=== PATIENT | male | born 1955 ===

== ENCOUNTER → 2019-01-14 | Outpatient (CLI) | payer MEDICAID | LOC: PET-BROA 05:39 ==

== ENCOUNTER 2019-02-19 13:57 | Inpatient (IN) | payer MEDICAID ==
[2019-02-19 14:03] VITALS: BMI 22.4
--- NOTE | 2019-02-19 14:45 | ED PDOC ---
Arrival/HPI - General Chief Complaint: GI Problem Time Seen by Provider: 02/19/19 14:15 Historian: Patient - History of Present Illness Narrative History of Present Illness (Text): 02/19/19 14:42 A 64 year old male presents to the emergency department for evaluation of drainage around manzo catheter that was placed at J tube site by [facility] staff after J tube had fallen out. Patient notes he woke up earlier today and noticed some d rainage at site. Patient notes he was then sent to ER for evaluation. Patient reports pain only upon coughing. Patient denies any fever, chills, chest pain, nausea, vomiting, dizziness, or any other complaints. PMD: Rochelle Matisa Time/Duration: Other (earlier today) Symptom Onset: Gradual Symptom Course: Unchanged Activities at Onset: Light Context: Other (alf) Past Medical History - Provider Review Nursing Documentation Reviewed: Yes - Infectious Disease Hx of Infectious Diseases: None - Cardiac Hx Hypertension: Yes Hx Pacemaker: No - HEENT Hx HEENT Disorder: No Other/Comment: esophageal CA - Hematological/Oncological Hx Blood Disorders: Yes Hx Cancer: Yes (esophageal CA) - Psychiatric Hx Substance Use: No - Surgical History Hx Coronary Stent: No Other/Comment: jejunostomy - Anesthesia Hx Anesthesia: Yes Hx Anesthesia Reactions: No Hx Malignant Hyperthermia: No Family/Social History - Physician Review Nursing Documentation Reviewed: Yes Family/Social History: No Known Family HX Smoking Status: Never Smoked Hx Alcohol Use: Yes Hx Substance Use: No Allergies/Home Meds Allergies/Adverse Reactions: Allergies No Known Allergies Allergy (Verified 02/19/19 14:19) Home Medications: Home Meds Medication Instructions Recorded Confirmed Aspirin [Aspirin Chewable] 1 tab GT DAILY 02/19/19 02/19/19 Docusate [Colace LIQUID] 10 ml GT TID 02/19/19 02/19/19 Lactose-Reduced Food [Ensure Plus] 1 bottle PO TID 02/19/19 02/19/19 Lactulose [Enulose] 20 gm GT DAILY PRN 02/19/19 02/19/19 Mirtazapine [Remeron] 1 tab GT HS 02/19/19 02/19/19 amLODIPine [Norvasc] 1 tab GT DAILY 02/19/19 02/19/19 lamoTRIgine [Lamictal] 75 mg GT BID 02/19/19 02/19/19 traZODone [Desyrel] 75 mg GT HS 02/19/19 02/19/19 Review of Systems - Physician Review All systems were reviewed & negative as marked: Yes - Review of Systems Cardiovascular: absent: Chest Pain Gastrointestinal: Other (manzo catheter drainage). absent: Nausea, Vomiting Neurological: absent: Dizziness Physical Exam Vital Signs Reviewed: Yes Vital Signs Temp Pulse Resp BP Pulse Ox 02/19/19 13:58 98 F 85 18 109/73 97 Temperature: Afebrile Blood Pressure: Normal Pulse: Regular Respiratory Rate: Normal Appearance: Positive for: Well-Appearing Mental Status: Positive for: Alert and Oriented X 3 - Systems Exam Head: Present: Atraumatic, Normocephalic Pupils: Present: PERRL Extroacular Muscles: Present: EOMI Conjunctiva: Present: Normal Mouth: Present: Moist Mucous Membranes Neck: Present: Normal Range of Motion Respiratory/Chest: Present: Clear to Auscultation, Good Air Exchange, Other (port noted to right upper chest wall). No: Respiratory Distress, Accessory Muscle Use Cardiovascular: Present: Regular Rate and Rhythm, Normal S1, S2. No: Murmurs Abdomen: Present: Other (manzo catheter noted to right abdomen with some draigage). No: Tenderness, Distention, Peritoneal Signs Back: Present: Normal Inspection Upper Extremity: Present: Normal Inspection. No: Cyanosis, Edema Lower Extremity: Present: Normal Inspection. No: Edema Neurological: Present: GCS=15, CN II-XII Intact, Speech Normal Skin: Present: Warm, Dry, Normal Color. No: Rashes Psychiatric: Present: Alert, Oriented x 3, Normal Insight, Normal Concentration Medical Decision Making ED Course and Treatment: 02/19/19 14:42 Impression: 64 year old male presenting to the emergency room for evaluation of site. Plan: -- Xray of left abdomen -- Reassess and disposition Prior Visits: Notes and results from previous visits were reviewed. Progress Notes: 02/19/19 16:07 Procedure: Abdomen Xray Dictator: Endy Allen Impression: Contrast is seen in the small bowel of the left upper quadrant confirming intraluminal position of catheter. 02/19/19 16:[address] Espinoza who agrees to admit patient for IV antibiotics and requests a consult to Dr. Zhou for surgery and Dr. Yomi Post for ID. 02/19/19 16:37 Patient eloped from hospital. 02/19/19 16:47 ED staff was able to locate patient and returned him to the ER. Patient is now agreeable to stay. - Scribe Statement The provider has reviewed the documentation as recorded by the Scribe Kathy Tam All medical record entries made by the Scribe were at my direction and personally dictated by me. I have reviewed the chart and agree that the record accurately reflects my personal performance of the history, physical exam, medical decision making, and the department course for this patient. I have also personally directed, reviewed, and agree with the discharge instructions and disposition. Disposition/Present on Arrival - Present on Arrival Any Indicators Present on Arrival: No History of DVT/PE: No History of Uncontrolled Diabetes: No Urinary Catheter: No History of Decub. Ulcer: No History Surgical Site Infection Following: None - Disposition Have Diagnosis and Disposition been Completed?: Yes Diagnosis: Jejunostomy tube fell out, Wound infection, Hypokalemia Disposition: HOSPITALIZED Disposition Time: 16:35 Patient Plan: Admission Patient Problems: Current Active Problems Problem Status Onset Hypokalemia Acute Jejunostomy tube fell out Acute Wound infection Acute Condition: STABLE
[2019-02-19] MEDS ORDERED: Iohexol 240 (50 ml) ONE (15:06)
--- NOTE | 2019-02-19 15:52 | RAD ---
Date of service: 02/19/2019 HISTORY: check placement manzo COMPARISON: None available. TECHNIQUE: 1 view obtained. FINDINGS: BOWEL: Normal. No obstruction. No free air. BONES: Normal. OTHER FINDINGS: None. IMPRESSION: Contrast is seen in the small bowel of the left upper quadrant confirming intraluminal position of catheter
[2019-02-19] MEDS ORDERED: Vancomycin 1gm in NS 250ml 1 GM/250 ML BAG IVPB STA (16:46)
[2019-02-19 17:36] LABS: INR 1.37; PARTIAL THROMBOPLASTIN TIME 35.7 Seconds (26.9-38.3); PROTHROMBIN TIME 15.2 SECONDS (9.4-12.5)
[2019-02-19 17:38] LABS: ALB/GLOB RATIO 0.9 (1.1-1.8); ALBUMIN 3.9 g/dL (3.0-4.8); AST/SGOT 19 U/L (17-59); BLOOD UREA NITROGEN 16 mg/dL (7-21); CALCIUM 9.3 mg/dL (8.4-10.5); GFR NON-AFRICAN AMERICAN > 60
[2019-02-19 17:46] LABS: ALT/SGPT < 6 U/L (7-56)
[2019-02-19 17:58] LABS: BASO # 0.03 {null, K/mm3} (0.0-2.0); BASO % 0.3 % (0.0-3.0); EOS # 0.2 (0.0-0.7); EOS % 2.2 % (1.5-5.0); HEMOGLOBIN 12.7 g/dL (14.0-18.0); MEAN CORPUSCULAR HEMOGLOBIN 30.3 pg (25.0-35.0); MEAN PLATELET VOLUME 11.2 fl (7.0-11.0); MONO # 0.5 (0.1-0.6); MONO % 5.3 % (1.0-6.0); RBC 4.19 {null, 10^6/uL} (3.5-6.1); RED CELL DISTRIBUTION WIDTH 15.4 % (11.5-14.5); WHITE BLOOD COUNT 9.9 {null, 10^3/uL} (4.5-11.0)
[2019-02-19] MEDS ORDERED: Potassium Chloride 40 mEq/30 ml LIQ UD PO STA (18:03)
[2019-02-19] MEDS ORDERED: Potassium Chloride 40 mEq/30 ml LIQ UD GT STA (18:07)
--- NOTE | 2019-02-19 19:40 | CP.PCM.CON ---
History of Present Illness - History of Present Illness History of Present Illness: Infectious Disease Consultation: February 19, 2019 64 yo male with drainage from J-tube site. ER reports show that J-tube came out and a manzo was placed for access today. ([facility] notes are not showing this as I am reviewing them. [facility] notes showing the patient receiving medications at 6:18PM even though the patient has been in [facility] since 1PM from my review of the records.). The patient is making no specific complaints at this time. Afebrile and without leukocytosis. The patient has been in [facility] since 01/07/2019. Discussed with nursing staff at [facility]. The patient was found to have J-tube dislodged this morning. [facility] nursing placed manzo in J-tube place and was able to give feeds. As per [facility] nursing, patient wanted to be sent to hospital to be evaluated. Nursing at [facility] mentioned that there was a little amount of drainage but did not identify it as pus. Multiple previous hospitalizations at [facility]. Recent diagnosis of esophageal cancer in December 2018. PMHx: Esophageal Cancer, Abnormal weight loss, HTN, EtOH Abuse, depression, worsening solid oral intake. PSHx: Jejunostomy, Ventral hernia repair (12/12/2018), appendectomy Allergies: NKDA Social Hx: Daily EtOH use of 1/2 bottle of Vodka daily, tobacco use, no illicit drugs Active Medications Amlodipine Besylate (Norvasc) 10 mg PO DAILY [facility] Aspirin (Aspirin Chewable) 81 mg PO DAILY [facility] Docusate Sodium (Colace Liquid) 100 mg PO TID [facility] Lactulose (Enulose) 20 gm PO DAILY PRN PRN Reason: Constipation Lamotrigine (Lamictal) 75 mg PO BID [facility]; Protocol Mirtazapine (Remeron) 15 mg PO HS [facility] Trazodone HCl (Desyrel) 75 mg PO HS [facility] Family Hx: liver disease in the father. ROS: drainage at J-tube site. Depression NO fevers, chills, nausea, vomiting, diarrhea, headaches, dizziness, chest pain, abdominal pain, melena, hematuria, hematemesis, hematochezia, vision, loss, hearing loss, loss of consciousness. Past Patient History - Infectious Disease Hx of Infectious Diseases: None - Past Social History Smoking Status: Never Smoked - CARDIAC Hx Hypertension: Yes Hx Pacemaker: No - HEENT Hx HEENT Problems: No Other/Comment: esophageal CA - HEMATOLOGICAL/ONCOLOGICAL Hx Blood Disorders: Yes Hx Cancer: Yes (esophageal CA) - PSYCHIATRIC Hx Substance Use: No - SURGICAL HISTORY Hx Coronary Stent: No Other/Comment: jejunostomy - ANESTHESIA Hx Anesthesia: Yes Hx Anesthesia Reactions: No Hx Malignant Hyperthermia: No Meds Allergies/Adverse Reactions: Allergies Allergy/AdvReac Type Severity Reaction Status Date / Time No Known Allergies Allergy Verified 02/19/19 14:19 - Medications Medications: Current Medications Amlodipine Besylate (Norvasc) 10 mg PO DAILY [facility] Aspirin (Aspirin Chewable) 81 mg PO DAILY [facility] Docusate Sodium (Colace Liquid) 100 mg PO TID [facility] Lactulose (Enulose) 20 gm PO DAILY PRN PRN Reason: Constipation Lamotrigine (Lamictal) 75 mg PO BID [facility]; Protocol Mirtazapine (Remeron) 15 mg PO HS [facility] Trazodone HCl (Desyrel) 75 mg PO HS [facility] Physical Exam - Constitutional Appears: Non-toxic, No Acute Distress - Head Exam Head Exam: ATRAUMATIC, NORMOCEPHALIC - Eye Exam Eye Exam: EOMI, PERRL Pupil Exam: NORMAL ACCOMODATION, PERRL - ENT Exam ENT Exam: Mucous Membranes Moist, Normal External Ear Exam, TM's Normal Bilaterally - Neck Exam Neck exam: Positive for: Full Rom, Normal Inspection - Respiratory Exam Respiratory Exam: Clear to Auscultation Bilateral, NORMAL BREATHING PATTERN. absent: Rales, Rhonchi, Wheezes - Cardiovascular Exam Cardiovascular Exam: REGULAR RHYTHM, RRR, +S1, +S2 - GI/Abdominal Exam GI & Abdominal Exam: Normal Bowel Sounds, Soft. absent: Distended, Tenderness Additional comments: J-tube site with no erythema. Questionable tenderness... patient claims tenderness when anyone gets near J-tube insertion site. - Extremities Exam Extremities exam: Positive for: full ROM, normal inspection - Neurological Exam Neurological exam: Alert, CN II-XII Intact, Oriented x3 - Psychiatric Exam Psychiatric exam: Normal Affect, Normal Mood - Skin Skin Exam: Intact, Normal Color Results - Vital Signs Recent Vital Signs: Last Vital Signs Temp 98 F 02/19/19 13:58 Pulse 64 02/19/19 18:28 Resp 18 02/19/19 18:28 BP 112/67 02/19/19 18:28 Pulse Ox 99 02/19/19 18:28 - Labs Result Diagrams: 02/19/19 17:45 02/19/19 17:20 Labs: Laboratory Results - last 24 hr 02/19/19 02/19/19 02/19/19 17:20 17:20 17:45 WBC 9.9 RBC 4.19 Hgb 12.7 L Hct 37.3 L MCV 89.0 MCH 30.3 MCHC 34.0 RDW 15.4 H Plt Count 234 MPV 11.2 H Neut % (Auto) 82.2 H Lymph % (Auto) 10.0 L [place] % (Auto) 5.3 Eos % (Auto) 2.2 Baso % (Auto) 0.3 Lymph # (Auto) 1.0 L [place] # (Auto) 0.5 Eos # (Auto) 0.2 Baso # (Auto) 0.03 Absolute Neuts (auto) 8.17 H PT 15.2 H INR 1.37 APTT 35.7 Sodium 138 Potassium 3.1 L Chloride 102 Carbon Dioxide 25 Anion Gap 15 BUN 16 Creatinine 1.0 Est GFR ( Amer) > 60 Est GFR (Non-Af Amer) > 60 Random Glucose 93 Calcium 9.3 Total Bilirubin 0.7 AST 19 ALT < 6 L Alkaline Phosphatase 124 Total Protein 8.0 Albumin 3.9 Globulin 4.1 Albumin/Globulin Ratio 0.9 L Assessment & Plan - Assessment and Plan (Free Text) Assessment: 64 yo male with recent diagnosis of esophageal cancer found to have a dislodged J-tube on morning of 02/19/2019 at [facility]. The patient without fevers or chills. No other complaints at nursing facility. Patient with questionable tenderness of the J-tube site. Manzo in place of the J-tube a t this time. Imaging studies show no extravasation and contrast is flowing into bowel. Will give Rocephin as empiric antibiotic therapy. However, no fevers or leukocytosis. Surgery recommending for IR to replace J-tube. Supportive care. Thank you for allowing me to participate in the care of the patient, we will follow with you.
--- NOTE | 2019-02-19 20:05 | CP.PCM.CON ---
History of Present Illness - History of Present Illness History of Present Illness: Surgery Consult Note for Dr. Gill Consult: Dislodged J-tube HPI: 64M, past medical history significant for esophageal cancer s/p radiation and alcohol abuse, presents to the emergency department with dislodged J-tube. [facility] states he woke up and noticed the tube had come out. The nursed at the facility placed a manzo and had him transferred to the ED for further evaluation and treatment. Patient endorses mild pain around the J- tube site. Aggravated by palpation. No alleviating factors that he is aware of. Denies f/c, n/v/d, SOB, CP, or urinary symptoms. PMH: See above + DM, HTN PSH: Appendectomy, J-tube insertion, RIJ port-a-cath, Ventral hernia repair FH: Noncontributory SH: Admits to history of alcohol abuse (1/2 pint vodka daily) stopped since cancer diagnosis, denies tobacco or illicit drug use. Patient resident at [facility]. ALL: NKDA Meds: See MAR Review of Systems - Constitutional Constitutional: Weight Loss. absent: Chills, Fever - EENT Eyes: absent: Blurred Vision, Change in Vision Nose/Mouth/Throat: Dry Mouth, Dysphagia. absent: Nasal Congestion, Nasal Discharge, Hoarsness - Cardiovascular Cardiovascular: absent: Chest Pain, Dyspnea - Respiratory Respiratory: absent: Cough, Dyspnea, Hemoptysis, Wheezing - Gastrointestinal Gastrointestinal: Abdominal Pain (at J-tube site ). absent: Nausea, Vomiting - Genitourinary Genitourinary: absent: Difficulty Urinating, Dysuria - Musculoskeletal Musculoskeletal: absent: Back Pain, Neck Pain - Integumentary Integumentary: Changing Lesions - Neurological Neurological: absent: Confusion, Dizziness - Psychiatric Psychiatric: absent: Anxiety, Depression Past Patient History - Infectious Disease Hx of Infectious Diseases: None - Past Social History Smoking Status: Never Smoked - CARDIAC Hx Hypertension: Yes Hx Pacemaker: No - HEENT Hx HEENT Problems: No Other/Comment: esophageal CA - HEMATOLOGICAL/ONCOLOGICAL Hx Blood Disorders: Yes Hx Cancer: Yes (esophageal CA) - PSYCHIATRIC Hx Substance Use: No - SURGICAL HISTORY Hx Coronary Stent: No Other/Comment: jejunostomy - ANESTHESIA Hx Anesthesia: Yes Hx Anesthesia Reactions: No Hx Malignant Hyperthermia: No Meds Allergies/Adverse Reactions: Allergies Allergy/AdvReac Type Severity Reaction Status Date / Time No Known Allergies Allergy Verified 02/19/19 14:19 - Medications Medications: Current Medications Amlodipine Besylate (Norvasc) 10 mg PO DAILY [facility] Aspirin (Aspirin Chewable) 81 mg PO DAILY [facility] Docusate Sodium (Colace Liquid) 100 mg PO TID [facility] Lactulose (Enulose) 20 gm PO DAILY PRN PRN Reason: Constipation Lamotrigine (Lamictal) 75 mg PO BID [facility]; Protocol Mirtazapine (Remeron) 15 mg PO HS [facility] Trazodone HCl (Desyrel) 75 mg PO HS [facility] Physical Exam - Constitutional Appears: Well, Non-toxic, No Acute Distress - Head Exam Head Exam: ATRAUMATIC, NORMAL INSPECTION, NORMOCEPHALIC - Eye Exam Eye Exam: EOMI Pupil Exam: PERRL - ENT Exam ENT Exam: Mucous Membranes Dry - Neck Exam Neck exam: Negative for: Lymphadenopathy - Respiratory Exam Respiratory Exam: NORMAL BREATHING PATTERN. absent: Wheezes, Respiratory Distress - Cardiovascular Exam Cardiovascular Exam: REGULAR RHYTHM, +S1, +S2 - GI/Abdominal Exam GI & Abdominal Exam: Normal Bowel Sounds, Soft. absent: Distended, Guarding, Rebound, Tenderness Additional comments: J-tube site has manzo in place - site appears to have seropurulent drainage - Extremities Exam Extremities exam: Positive for: normal inspection, pedal pulses present - Neurological Exam Neurological exam: Alert, Oriented x3 - Psychiatric Exam Psychiatric exam: Normal Affect, Normal Mood - Skin Skin Exam: Dry, Intact, Warm Results - Vital Signs Recent Vital Signs: Last Vital Signs Temp 98 F 02/19/19 13:58 Pulse 64 02/19/19 18:28 Resp 18 02/19/19 18:28 BP 112/67 02/19/19 18:28 Pulse Ox 99 02/19/19 18:28 - Labs Result Diagrams: 02/19/19 17:45 02/19/19 17:20 Labs: Laboratory Results - last 24 hr 02/19/19 02/19/19 02/19/19 17:20 17:20 17:45 WBC 9.9 RBC 4.19 Hgb 12.7 L Hct 37.3 L MCV 89.0 MCH 30.3 MCHC 34.0 RDW 15.4 H Plt Count 234 MPV 11.2 H Neut % (Auto) 82.2 H Lymph % (Auto) 10.0 L [place] % (Auto) 5.3 Eos % (Auto) 2.2 Baso % (Auto) 0.3 Lymph # (Auto) 1.0 L [place] # (Auto) 0.5 Eos # (Auto) 0.2 Baso # (Auto) 0.03 Absolute Neuts (auto) 8.17 H PT 15.2 H INR 1.37 APTT 35.7 Sodium 138 Potassium 3.1 L Chloride 102 Carbon Dioxide 25 Anion Gap 15 BUN 16 Creatinine 1.0 Est GFR ( Amer) > 60 Est GFR (Non-Af Amer) > 60 Random Glucose 93 Calcium 9.3 Total Bilirubin 0.7 AST 19 ALT < 6 L Alkaline Phosphatase 124 Total Protein 8.0 Albumin 3.9 Globulin 4.1 Albumin/Globulin Ratio 0.9 L Assessment & Plan - Assessment and Plan (Free Text) Assessment: 64M, PMH significant for esophageal cancer, w/ dislodged J-tube Plan: Tube study shows contrast within small bowel - no extravasation Keep manzo in place securely to maintain tract Can use manzo for tube feeds Recommend IR consult to replace the feeding tube at this time No acute surgical intervention indicated at this time D/w Dr. Jairo Omalley PGY1
[2019-02-20] MEDS: cefTRIAXone 1 gm 1 GM/100 ML BAG IVPB SCH (10:04)
[2019-02-20] MEDS: Sucralfate 1 gm/10 ml Oral Susp UD PO SCH (16:38)
--- NOTE | 2019-02-20 17:53 | CP.PCM.PN ---
Subjective - Date & Time of Evaluation Date of Evaluation: 02/20/19 Time of Evaluation: 16:30 - Subjective Subjective: Infectious Disease Follow Up: February 20, 2019 64 yo male with drainage from J-tube site. ER reports show that J-tube came out and a manzo was placed for access today. ([facility] notes are not showing this as I am reviewing them. [facility] notes showing the patient receiving medications at 6:18PM even though the patient has been in [facility] since 1PM from my review of the records.). The patient is making no specific complaints at this time. Afebrile and without leukocytosis. The patient has been in [facility] since 01/07/2019. Discussed with nursing staff at [facility]. The patient was found to have J-tube dislodged this morning. [facility] nursing placed manzo in J-tube place and was able to give feeds. As per [facility] nursing, patient wanted to be sent to hospital to be evaluated. Nursing at [facility] mentioned that there was a little amount of drainage but did not identify it as pus. Multiple previous hospitalizations at [facility]. Recent diagnosis of esophageal cancer in December 2018. No new complaints. Objective - Vital Signs/Intake and Output Vital Signs (last 24 hours): Temp Pulse Resp BP Pulse Ox 97.9 F 67 18 111/72 99 02/20/19 14:56 02/20/19 14:56 02/20/19 14:56 02/20/19 14:56 02/20/19 14:56 - Medications Medications: Current Medications Amlodipine Besylate (Norvasc) 10 mg PO DAILY [facility] Last Admin: 02/20/19 10:05 Dose: 10 mg Aspirin (Aspirin Chewable) 81 mg PO DAILY [facility] Last Admin: 02/20/19 10:05 Dose: 81 mg Docusate Sodium (Colace Liquid) 100 mg PO TID [facility] Last Admin: 02/20/19 13:53 Dose: 100 mg Ceftriaxone Sodium (Rocephin 1 Gram Ivpb) 1 gm in 100 mls @ 100 mls/hr IVPB DAILY [facility]; Protocol Last Admin: 02/20/19 10:04 Dose: 100 mls/hr Lactulose (Enulose) 20 gm PO DAILY PRN PRN Reason: Constipation Lamotrigine (Lamictal) 75 mg PO BID [facility]; Protocol Last Admin: 02/20/19 10:05 Dose: 75 mg Mirtazapine (Remeron) 15 mg PO HS [facility] Last Admin: 02/19/19 22:50 Dose: 15 mg Sucralfate (Carafate Oral Susp) 1 gm PO 0600,1600 [facility] Last Admin: 02/20/19 16:38 Dose: 1 gm Trazodone HCl (Desyrel) 75 mg PO HS [facility] Last Admin: 02/19/19 22:50 Dose: 75 mg - Labs Labs: 02/19/19 17:45 02/19/19 17:20 PT 15.2 SECONDS (9.4-12.5) H 02/19/19 17:20 INR 1.37 02/19/19 17:20 APTT 35.7 Seconds (26.9-38.3) 02/19/19 17:20 - Constitutional Appears: Non-toxic, No Acute Distress, Chronically Ill - Head Exam Head Exam: ATRAUMATIC, NORMOCEPHALIC - Eye Exam Eye Exam: EOMI, PERRL Pupil Exam: NORMAL ACCOMODATION, PERRL - ENT Exam ENT Exam: Mucous Membranes Moist, Normal External Ear Exam, TM's Normal Bilaterally - Neck Exam Neck Exam: Full ROM, Normal Inspection - Respiratory Exam Respiratory Exam: Clear to Ausculation Bilateral, NORMAL BREATHING PATTERN. absent: Rales, Rhonchi, Wheezes - Cardiovascular Exam Cardiovascular Exam: REGULAR RHYTHM, RRR, +S1, +S2 - GI/Abdominal Exam GI & Abdominal Exam: Soft, Normal Bowel Sounds. absent: Distended, Tenderness Additional comments: J-tube site with no erythema. Questionable tenderness... patient claims tenderness when anyone gets near J-tube insertion site. Noted that a manzo is in place of the J-tube. - Extremities Exam Extremities Exam: Full ROM, Normal Inspection - Neurological Exam Neurological Exam: Alert, Awake, CN II-XII Intact, Oriented x3 - Psychiatric Exam Psychiatric exam: Normal Affect, Normal Mood - Skin Skin Exam: Intact, Normal Color Assessment and Plan - Assessment and Plan (Free Text) Assessment: 64 yo male with recent diagnosis of esophageal cancer found to have a dislodged J-tube on morning of 02/19/2019 at [facility]. The patient without fevers or chills. No other complaints at nursing facility. Patient with questionable tenderness of the J-tube site. Manzo in place of the J-tube at this time. Imaging studies show no extravasation and contrast is flowing in to bowel. Will give Rocephin as empiric antibiotic therapy. However, no fevers or leukocytosis. Surgery recommending for IR to replace J-tube. No new issues. Consider GI evaluation regarding J-tube as well. Supportive care. Thank you for allowing me to participate in the care of the patient, we will follow with you.
--- NOTE | 2019-02-21 03:34 | HP ---
DATE OF EXAM: 02/19/2019 The patient was seen and examined at the bedside on 02/19/2019. CHIEF COMPLAINT: Abdominal pain. HISTORY OF PRESENT ILLNESS: Mr. Michael Chaves is a 64-year-old male with past medical history of oesophageal squamous cell carcinoma, has Port-a-cath J-tube placement done by Dr. Gill in [facility]. He is getting radiation therapy from [facility] under care of oncologist, Dr. Garcia. He was getting subacute rehab in [facility]. He pulled his J-tube, then we sent nursing staff to put Doss catheter in that and then we sent the patient to their emergency room, on examination came to know that at the site of J-tube, he has drainage noticed by ER. The patient had noticed that he was having a little bit pain in the abdomen. The patient is a very poor historian, reporting coughing. No nausea, vomiting, diarrhea. No hematuria. No hematochezia. No headache. No dizziness. PAST MEDICAL HISTORY: Squamous cell carcinoma of the esophagus, hypertension, COPD, jejunostomy tube, Port-A-Cath, history of ethanol abuse, smoking and history of drugs. FAMILY HISTORY: Father and mother, noncontributory. HABITS: History of smoking, but now quit. History of alcohol abuse, now quit. History of drug abuse, now quit. The patient is a homeless. ALLERGIES: THE PATIENT IS NOT ALLERGIC WITH ANY MEDICATIONS. HOME MEDICATIONS: Aspirin, Colace, Enulose, Norvasc, Lamictal, and trazodone. REVIEW OF SYSTEMS: The patient was seen and examined at the bedside, looking comfortable. No fever. No chills. No hematuria. No hematochezia. No headache. No dizziness. No chest pain. No palpitation. Having abdominal pain and discharged from the J-tube placement. PHYSICAL EXAMINATION VITAL SIGNS: Temperature 98, pulse 65, respiratory rate 18, blood pressure 109/73, pulse oximetry 97%. HEENT: Head is normocephalic and atraumatic. Eyes; PERRLA. Extraocular muscles intact. Conjunctiva clear. Nose patent. Mucous membranes moist. NECK: Supple. No carotid bruits. No JVD. No thyromegaly. CHEST: Bilaterally symmetrical. HEART: S1 and S2 positive. LUNGS: Clear to auscultation. ABDOMEN: Doss catheter noted to the right abdomen with some drainage. No distention. No peritoneal signs. EXTREMITIES: No edema. No cyanosis. NEUROLOGIC: The patient is awake and alert. Follow simple commands. LABORATORY DATA: White blood cell count 9.9, hemoglobin 12.7, hematocrit 37.3, platelets 234. Sodium 138, potassium 3.1, BUN 15, creatinine 1.0 and glucose 93. ASSESSMENT AND PLAN: Mr. Anastacio Rodriguez is a 64-year-old male with anemia, hypokalemia, history of esophageal cancer, has jejunostomy tube placement. He is getting subacute rehabilitation in [facility]. Over the jejunostomy tube was displaced, was replaced with Doss catheter. The patient is a very poor historian. The patient do not know how tube was dislodged, history of chronic obstructive pulmonary disease, history of aspiration, history of drug abuse, alcohol abuse, and ethanol abuse long time ago, cellulitis of the abdominal wall. Imaging shows no extravasation contrast flowing into the bowel, got Rocephin, empiric treatment. Consult put with surgical team and Dr. Gill. Discussion done with nursing staff. Repeat laboratories. We will follow up. Appreciated Dr. Rizo's input. Kristina Espinoza MD MTDD
--- NOTE | 2019-02-21 03:36 | PN ---
DATE: 02/20/2019 SUBJECTIVE: The patient is seen and examined at the bedside on 02/20/2019, looking comfortable. Abdominal pain is better. When he is eating, he is coughing. He is not allowed to eat. He should get feeding with his J-tube. Placed Doss catheter. No fever, no chills. No hematuria or hematochezia. No headache, no dizziness. No chest pain, no palpitations. PHYSICAL EXAMINATION: VITAL SIGNS: Temperature 97.9, pulse 57, blood pressure 111/72, respiratory rate 18. HEENT: Head: Normocephalic, atraumatic. Eyes: PERRLA. Extraocular muscles intact. Conjunctivae clear. Nose patent. Mucous membrane moist. NECK: Supple. No carotid bruits. No JVD. No thyromegaly. CHEST: Bilaterally symmetrical. HEART: S1 and S2 positive. LUNGS: Clear to auscultation. ABDOMEN: Soft, distended, J-tube placement. That area is a little bit red with pus discharge and has Doss catheter in that. EXTREMITIES: No edema. No cyanosis. NEUROLOGIC: The patient is awake and alert. Moving all four extremities. No focal deficits. MEDICATIONS: Aspirin, Carafate, Colace, trazodone, lactulose, Lamictal, Norvasc, Remeron, Rocephin. LABORATORY DATA: BUN 16, creatinine 1, glucose 93. White blood cell 9.9, hemoglobin 12.7, hematocrit 37.3, platelets 234. ASSESSMENT AND PLAN: Mr. Anastacio Rodriguez is a 64-year-old male with anemia, hypokalemia, chronic obstructive pulmonary disease, history of heavy smoking, esophageal cancer, has Port-A-Cath and has jejunostomy tube placement, history of diabetes mellitus and hypertension, history of ventral hernia repair, history of alcohol abuse of half pint vodka daily, stopped since cancer diagnosed, history of heavy smoking, now brought to [facility] because of dislodged jejunostomy tube and the area looks like infected. Cultures are done. Intravenous antibiotics given. Surgical consult called. Now, as per Surgery, I called Interventional Radiology consult. Gastrointestinal and deep vein thrombosis prophylaxis. Repeat laboratories. We will follow. Kristina Espinoza MD MTDD
[2019-02-21] MEDS: Sucralfate 1 gm/10 ml Oral Susp UD PO SCH ×2 (05:54→19:02)
[2019-02-21] MEDS: cefTRIAXone 1 gm 1 GM/100 ML BAG IVPB SCH (09:11)
--- NOTE | 2019-02-21 17:10 | CP.PCM.PN ---
Subjective - Date & Time of Evaluation Date of Evaluation: 02/21/19 Time of Evaluation: 16:00 - Subjective Subjective: Infectious Disease Follow Up: February 21, 2019 64 yo male with drainage from J-tube site. ER reports show that J-tube came out and a manzo was placed for access today. ([facility] notes are not showing this as I am reviewing them. [facility] notes showing the patient receiving medications at 6:18PM even though the patient has been in [facility] since 1PM from my review of the records.). The patient is making no specific complaints at this time. Afebrile and without leukocytosis. The patient has been in [facility] since 01/07/2019. Discussed with nursing staff at [facility]. The patient was found to have J-tube dislodged this morning. [facility] nursing placed manzo in J-tube place and was able to give feeds. As per [facility] nursing, patient wanted to be sent to hospital to be evaluated. Nursing at [facility] mentioned that there was a little amount of drainage but did not identify it as pus. Multiple previous hospitalizations at [facility]. Recent diagnosis of esophageal cancer in December 2018. No new complaints. Awaiting IR evaluation for replacement of J-tube. Objective - Vital Signs/Intake and Output Vital Signs (last 24 hours): Temp Pulse Resp BP Pulse Ox 98.5 F 70 18 122/74 98 02/21/19 14:00 02/21/19 14:00 02/21/19 14:00 02/21/19 14:00 02/21/19 14:00 - Medications Medications: Current Medications Amlodipine Besylate (Norvasc) [address] [facility] Last Admin: 02/21/19 09:12 Dose: Not Given Aspirin (Aspirin Chewable) [address] [facility] Last Admin: 02/21/19 09:10 Dose: 81 mg Docusate Sodium (Colace Liquid) [address] [facility] Last Admin: 02/21/19 14:44 Dose: Not Given Ceftriaxone Sodium (Rocephin 1 Gram Ivpb) 1 gm in 100 mls @ 100 mls/hr IVPB DAILY [facility]; Protocol Last Admin: 02/21/19 09:11 Dose: 100 mls/hr Lactulose (Enulose) 20 gm PO DAILY PRN PRN Reason: Constipation Lamotrigine (Lamictal) [address] [facility]; Protocol Last Admin: 02/21/19 09:16 Dose: Not Given Mirtazapine (Remeron) [address] [facility] Last Admin: 02/20/19 23:42 Dose: Not Given Sucralfate (Carafate Oral Susp) 1 gm PO 0600,1600 [facility] Last Admin: 02/21/19 05:54 Dose: Not Given Trazodone HCl (Desyrel) 75 mg PO [facility] Last Admin: 02/20/19 23:42 Dose: Not Given - Labs Labs: 02/19/19 17:45 02/19/19 17:20 PT 15.2 SECONDS (9.4-12.5) H 02/19/19 17:20 INR 1.37 02/19/19 17:20 APTT 35.7 Seconds (26.9-38.3) 02/19/19 17:20 - Constitutional Appears: Non-toxic, No Acute Distress, Chronically Ill - Head Exam Head Exam: ATRAUMATIC, NORMOCEPHALIC - Eye Exam Eye Exam: EOMI, PERRL Pupil Exam: NORMAL ACCOMODATION, PERRL - ENT Exam ENT Exam: Mucous Membranes Moist, Normal External Ear Exam, TM's Normal B ilaterally - Neck Exam Neck Exam: Full ROM, Normal Inspection - Respiratory Exam Respiratory Exam: Clear to Ausculation Bilateral, NORMAL BREATHING PATTERN. absent: Rales, Rhonchi, Wheezes - Cardiovascular Exam Cardiovascular Exam: REGULAR RHYTHM, RRR, +S1, +S2 - GI/Abdominal Exam GI & Abdominal Exam: Soft, Normal Bowel Sounds. absent: Distended, Tenderness Additional comments: J-tube site with no erythema. Mild tenderness of the J-tube site. - Extremities Exam Extremities Exam: Full ROM, Normal Inspection - Neurological Exam Neurological Exam: Alert, Awake, CN II-XII Intact, Oriented x3 - Psychiatric Exam Psychiatric exam: Normal Affect, Normal Mood - Skin Skin Exam: Intact, Normal Color Assessment and Plan - Assessment and Plan (Free Text) Assessment: 64 yo male with recent diagnosis of esophageal cancer found to have a dislodged J-tube on morning of 02/19/2019 at [facility]. The patient without fevers or chills. No other complaints at nursing facility. Patient with questionable tenderness of the J-tube site. Manzo in place of the J-tube at this time. Imaging studies show no extravasation and contrast is flowing into bowel. Will give Rocephin as empiric antibiotic therapy. However, no fevers or leukocytosis. Surgery recommending for IR to replace J-tube. No new issues. Consider GI evaluation regarding J-tube as well. Will continue on Gavino ephin empirically for antibiotic coverage. Supportive care. Thank you for allowing me to participate in the care of the patient, we will follow with you.
[2019-02-22] MEDS: Sucralfate 1 gm/10 ml Oral Susp UD PO SCH ×2 (05:36→18:24)
[2019-02-22] MEDS: cefTRIAXone 1 gm 1 GM/100 ML BAG IVPB SCH (12:42)
--- NOTE | 2019-02-22 12:49 | PN ---
DATE: 02/21/2019 SUBJECTIVE: The patient was seen and examined at the bedside on 02/21/2019. This progress note is for 02/21/2019, still having bunion pain and dysphagia. No fever. No chills. No hematuria or hematochezia. No headache or dizziness. No chest pain. No palpitation. No coughing. PHYSICAL EXAMINATION: VITAL SIGNS: Temperature 98.5, pulse 70, respiratory rate 18, blood pressure 120/74, pulse oximetry 98. HEENT: Normocephalic, atraumatic. Eyes: PERRLA. Extraocular muscles intact. Conjunctivae clear. Nose patent. NECK: Supple. No carotid bruits. No JVD or thyromegaly. CHEST: Bilaterally symmetrical. HEART: S1 and S2 positive. LUNGS: Clear to auscultation. ABDOMEN: Soft. Bowel sounds present. No organomegaly. EXTREMITIES: No edema. No cyanosis. NEUROLOGIC: The patient is awake and alert. Moving all four extremities. No focal deficits. MEDICATIONS: Amlodipine, aspirin, Colace, Rocephin, lactulose, Lamictal, Remeron, Carafate, vitamin D. LABORATORY DATA: The patient refused the labs. I reviewed all labs. ASSESSMENT AND PLAN: Mr. Anastacio Rodriguez is a 64 years old male with hypertension, constipation, infection at the site of J-tube placement, depression, anemia, hypokalemia, has esophageal squamous cell carcinoma, has dislodged the jejunostomy tube placed with Doss catheter, now waiting from Intervention Radiology to make sure I could consult with Gastroenterology and Surgery also, out of bed Physical Therapy. Gastrointestinal and deep vein thrombosis prophylaxis, especially, the patient is on aspiration precautions, nurse is putting something in the mouth as he was getting coughing. Repeat labs. We will follow up. Kristina Espinoza MD MTDD
--- NOTE | 2019-02-22 16:47 | CP.PCM.CON ---
<MariGadiel - Last Filed: 02/22/19 16:44> History of Present Illness - History of Present Illness History of Present Illness: PGY4 GI fellow consult note Patient is a 64-year-old male with a past medical history of pretension, COPD, former tobacco and alcohol abuser, esophageal squamous carcinoma currently undergoing radiation therapy with Dr. Garcia who was sent in from skilled nursing due to dislodged J-tube and concerns for possible infection. patient states that he is not sure how his G-tube became dislodged. However, at the skilled nursing a Doss catheter was placed in the lumen to maintain the tract. There is also some concern of abnormal discharge as well as possible underlying cellulitis. A contrasted radiograph was done confirming placement within the lumen of the Doss catheter. Patient states he is currently tolerating his liquid diet. He denied any fevers, chills, nausea, vomiting, melena nor hematochezia. 12 point review of systems negative other than stated above Medical history: See above Surgical history Port-A-Cath, J-tube placed by surgery Medications: Reviewed Family history: Denied GI or colorectal cancer Social history: homeless, history of tobacco and alcohol abuse but currently sober Allergies: No known drug allergies Past Patient History - Infectious Disease Hx of Infectious Diseases: None - Past Social History Smoking Status: Never Smoked - CARDIAC Hx Hypertension: Yes Hx Pacemaker: No - HEENT Hx HEENT Problems: No Other/Comment: esophageal CA - HEMATOLOGICAL/ONCOLOGICAL Hx Blood Disorders: Yes Hx Cancer: Yes (esophageal CA) - MUSCULOSKELETAL/RHEUMATOLOGICAL Hx Falls: No - GASTROINTESTINAL Other/Comment: Jejuostomy; Diaphragmatic hernia - GENITOURINARY/GYNECOLOGICAL Hx Prostate Problems: Yes - PSYCHIATRIC Hx Substance Use: No - SURGICAL HISTORY Hx Coronary Stent: No Other/Comment: jejunostomy - ANESTHESIA Hx Anesthesia: Yes Hx Anesthesia Reactions: No Hx Malignant Hyperthermia: No Meds Allergies/Adverse Reactions: Allergies Allergy/AdvReac Type Severity Reaction Status Date / Time No Known Allergies Allergy Verified 02/19/19 14:19 - Medications Medications: Current Medications Amlodipine Besylate (Norvasc) 10 mg PO DAILY [facility] Last Admin: 02/22/19 12:36 Dose: Not Given Aspirin (Aspirin Chewable) 81 mg PO DAILY [facility] Last Admin: 02/22/19 12:18 Dose: 81 mg Docusate Sodium (Colace Liquid) 100 mg PO TID [facility] Last Admin: 02/22/19 14:19 Dose: Not Given Ceftriaxone Sodium (Rocephin 1 Gram Ivpb) 1 gm in 100 mls @ 100 mls/hr IVPB DAILY [facility]; Protocol Last Admin: 02/22/19 12:42 Dose: 100 mls/hr Lactulose (Enulose) 20 gm PO DAILY PRN PRN Reason: Constipation Last Admin: 02/21/19 19:02 Dose: 20 gm Lamotrigine (Lamictal) 75 mg PO BID [facility]; Protocol Last Admin: 02/22/19 14:19 Dose: Not Given Mirtazapine (Remeron) 15 mg PO HS [facility] Last Admin: 02/21/19 22:09 Dose: Not Given Sucralfate (Carafate Oral Susp) 1 gm PO 0600,1600 [facility] Last Admin: 02/22/19 05:36 Dose: Not Given Trazodone HCl (Desyrel) 75 mg PO HS [facility] Last Admin: 02/21/19 22:09 Dose: Not Given Physical Exam - Constitutional Appears: No Acute Distress, Chronically Ill - Head Exam Head Exam: ATRAUMATIC, NORMAL INSPECTION - Eye Exam Eye Exam: EOMI. absent: Scleral icterus - ENT Exam ENT Exam: Mucous Membranes Moist. absent: Mucous Membranes Dry - Respiratory Exam Respiratory Exam: Clear to Auscultation Bilateral, NORMAL BREATHING PATTERN. absent: Accessory Muscle Use - Cardiovascular Exam Cardiovascular Exam: REGULAR RHYTHM, RRR - GI/Abdominal Exam GI & Abdominal Exam: Guarding (voluntary guarding when palpating around J-tube site), Normal Bowel Sounds, Soft, Tenderness. absent: Bruit, Diminished Bowel Sounds, Distended, Firm, Hernia, Organomegaly, Rebound, Rigid Additional comments: Doss catheter in place of previous J-tube site with minimal amount of grayish discharge without significant overlying erythema - Extremities Exam Extremities exam: Positive for: normal inspection. Negative for: pedal edema - Neurological Exam Neurological exam: Alert, Oriented x3 - Psychiatric Exam Psychiatric exam: Normal Affect, Normal Mood - Skin Skin Exam: Normal Color, Warm Results - Vital Signs Recent Vital Signs: Last Vital Signs Temp 98.4 F 02/22/19 14:00 Pulse 68 02/22/19 14:00 Resp 18 02/22/19 14:00 BP 118/76 02/22/19 14:00 Pulse Ox 98 02/22/19 14:00 - Labs Result Diagrams: 02/19/19 17:45 02/19/19 17:20 Assessment & Plan - Assessment and Plan (Free Text) Assessment: 64-year-old gentleman with a history of esophageal carcinoma currently undergoing radiation therapy status post G-tube placement who was admitted for displaced G-tube as well as concerns for associated cellulitic infection around the J-tube. J-tube site currently being maintained with a Doss catheter in the tract and placement confirmed with contrast radiograph. Plan: recommend withdrawal of Doss catheter by several centimeters as a Doss catheter tube is significantly longer than a J tube agree with IR replacement of J-tube Antibiotics per primary/ID Patient seen and examined with Dr. Casas. Please see attestation for further recommendations/changes <Raymond Casas V - Last Filed: 02/22/19 23:30> Meds - Medications Medications: Current Medications Amlodipine Besylate (Norvasc) 10 mg PO DAILY [facility] Last Admin: 02/22/19 12:36 Dose: Not Given Aspirin (Aspirin Chewable) 81 mg PO DAILY [facility] Last Admin: 02/22/19 12:18 Dose: 81 mg Docusate Sodium (Colace Liquid) 100 mg PO TID [facility] Last Admin: 02/22/19 18:23 Dose: 100 mg Ceftriaxone Sodium (Rocephin 1 Gram Ivpb) 1 gm in 100 mls @ 100 mls/hr IVPB DAILY [facility]; Protocol Last Admin: 02/22/19 12:42 Dose: 100 mls/hr Lactulose (Enulose) 20 gm PO DAILY PRN PRN Reason: Constipation Last Admin: 02/21/19 19:02 Dose: 20 gm Lamotrigine (Lamictal) 75 mg PO BID [facility]; Protocol Last Admin: 02/22/19 18:24 Dose: 75 mg Mirtazapine (Remeron) 15 mg PO HS [facility] Last Admin: 02/22/19 22:04 Dose: Not Given Sucralfate (Carafate Oral Susp) 1 gm PO 0600,1600 [facility] Last Admin: 02/22/19 18:24 Dose: 1 gm Trazodone HCl (Desyrel) 75 mg PO HS [facility] Last Admin: 02/22/19 22:03 Dose: Not Given Results - Vital Signs Recent Vital Signs: Last Vital Signs Temp 98.1 F 02/22/19 22:33 Pulse 62 02/22/19 22:33 Resp 18 02/22/19 22:33 BP 120/80 02/22/19 22:33 Pulse Ox 99 02/22/19 22:33 - Labs Result Diagrams: 02/19/19 17:45 02/19/19 17:20 Attending/Attestation - Attestation I have personally seen and examined this patient.: Yes I have fully participated in the care of the patient.: Yes I have reviewed all pertinent clinical information: Yes Notes (Text): This patient was seen along with the GI fellow. The J-tube appears to be far from in. Surgical consult /follow-up review noticed. Requested IR guide dreplacement of the J-tube 02/22/19 23:23
--- NOTE | 2019-02-22 17:55 | CP.PCM.PN ---
Subjective - Date & Time of Evaluation Date of Evaluation: 02/22/19 Time of Evaluation: 15:30 - Subjective Subjective: Infectious Disease Follow Up: February 22, 2019 64 yo male with drainage from J-tube site. ER reports show that J-tube came out and a manzo was placed for access today. ([facility] notes are not showing this as I am reviewing them. [facility] notes showing the patient receiving medications at 6:18PM even though the patient has been in [facility] since 1PM from my review of the records.). The patient is making no specific complaints at this time. Afebrile and without leukocytosis. The patient has been in [facility] since 01/07/2019. Discussed with nursing staff at [facility]. The patient was found to have J-tube dislodged this morning. [facility] nursing placed manzo in J-tube place and was able to give feeds. As per [facility] nursing, patient wanted to be sent to hospital to be evaluated. Nursing at [facility] mentioned that there was a little amount of drainage but did not identify it as pus. Multiple previous hospitalizations at [facility] [place]. Recent diagnosis of esophageal cancer in December 2018. No new complaints. Awaiting IR evaluation for replacement of J-tube. Noted GI evaluation. Objective - Vital Signs/Intake and Output Vital Signs (last 24 hours): Temp Pulse Resp BP Pulse Ox 98.4 F 68 18 118/76 98 02/22/19 14:00 02/22/19 14:00 02/22/19 14:00 02/22/19 14:00 02/22/19 14:00 Intake and Output: 02/22/19 02/22/19 06:59 18:59 Intake Total 0 Balance 0 - Medications Medications: Current Medications Amlodipine Besylate (Norvasc) 10 mg PO DAILY [facility] Last Admin: 02/22/19 12:36 Dose: Not Given Aspirin (Aspirin Chewable) 81 mg PO DAILY [facility] Last Admin: 02/22/19 12:18 Dose: 81 mg Docusate Sodium (Colace Liquid) 100 mg PO TID [facility] Last Admin: 02/22/19 14:19 Dose: Not Given Ceftriaxone Sodium (Rocephin 1 Gram Ivpb) 1 gm in 100 mls @ 100 mls/hr IVPB DAILY [facility]; Protocol Last Admin: 02/22/19 12:42 Dose: 100 mls/hr Lactulose (Enulose) 20 gm PO DAILY PRN PRN Reason: Constipation Last Admin: 02/21/19 19:02 Dose: 20 gm Lamotrigine (Lamictal) 75 mg PO BID [facility]; Protocol Last Admin: 02/22/19 14:19 Dose: Not Given Mirtazapine (Remeron) 15 mg PO [facility] Last Admin: 02/21/19 22:09 Dose: Not Given Sucralfate (Carafate Oral Susp) 1 gm PO 0600,1600 [facility] Last Admin: 02/22/19 05:36 Dose: Not Given Trazodone HCl (Desyrel) 75 mg PO [facility] Last Admin: 02/21/19 22:09 Dose: Not Given - Labs Labs: 02/19/19 17:45 02/19/19 17:20 PT 15.2 SECONDS (9.4-12.5) H 02/19/19 17:20 INR 1.37 02/19/19 17:20 APTT 35.7 Seconds (26.9-38.3) 02/19/19 17:20 - Constitutional Appears: Non-toxic, No Acute Distress, Chronically Ill - Head Exam Head Exam: ATRAUMATIC, NORMOCEPHALIC - Eye Exam Eye Exam: EOMI, PERRL Pupil Exam: NORMAL ACCOMODATION, PERRL - ENT Exam ENT Exam: Mucous Membranes Moist, Normal External Ear Exam, TM's Normal Bilaterally - Neck Exam Neck Exam: Full ROM, Normal Inspection - Respiratory Exam Respiratory Exam: Clear to Ausculation Bilateral, NORMAL BREATHING PATTERN. absent: Rales, Rhonchi, Wheezes - Cardiovascular Exam Cardiovascular Exam: REGULAR RHYTHM, RRR, +S1, +S2 - GI/Abdominal Exam GI & Abdominal Exam: Soft, Normal Bowel Sounds. absent: Distended, Tenderness Additional comments: J-tube site with no erythema. Mild tenderness of the J-tube site. - Extremities Exam Extremities Exam: Full ROM, Normal Inspection - Neurological Exam Neurological Exam: Alert, Awake, CN II-XII Intact, Oriented x3 - Psychiatric Exam Psychiatric exam: Normal Affect, Normal Mood - Skin Skin Exam: Intact, Normal Color Assessment and Plan - Assessment and Plan (Free Text) Assessment: 64 yo male with recent diagnosis of esophageal cancer found to have a dislodged J-tube on morning of 02/19/2019 at [facility]. The patient without fevers or chills. No other complaints at nursing facility. Patient with questionable tenderness of the J-tube site. Manzo in place of the J-tube at this time. Imaging studies show no extravasation and contrast is flowing into bowel. Will give Rocephin as empiric antibiotic therapy. However, no fevers or leukocytosis. Surgery recommending for IR to replace J-tube. No new issues. Consider GI evaluation regarding J-tube as well. Will continue on Rocephin empirically for antibiotic coverage. Klebsiella pneumonia in wound cultures sensitive to Rocephin. Supportive care. Thank you for allowing me to participate in the care of the patient, we will follow with you.
--- NOTE | 2019-02-22 19:52 | PN ---
DATE: 02/22/2019 This case was discussed with Dr. Espinoza. She is in agreement with the treatment plan. SUBJECTIVE: This is a 64-year-old male, came in to hospital from [facility] with J-tube site drainage. The site was not patent. He was also last admitted in to [facility] maybe a week ago with nausea/vomiting He was discharged back to skilled nursing.The patient has past medical history of esophageal cancer, alcohol, seizure, anxiety, lumbago, BPH, hypertension. Seen patient at bedside today, He was looking comfortable. He was sitting in bed. I explained to the patient the J-tube dressing site needs to be cleansed by nurses before and after surgical J tube replacement. He also had other concerns about when he is going to surgery to get a J-tube reinserted; that also was discussed with the patient today. He denies chest pain, shortness of breath, dysuria, hematuria, hemochezia, or pain. THE PATIENT HAS NO KNOWN ALLERGIES. PHYSICAL EXAMINATION: GENERAL: The patient appears he is without acute distress; chronically ill. VITAL SIGNS: Temperature 98.3, pulse rate 59, blood pressure 118/73, respiratory rate 16, and saturating at 97% on room air. HEENT: Normocephalic. PERRLA. Mucous membranes moist. RESPIRATORY: Clear to auscultation. No wheezing. No rhonchi. CARDIOVASCULAR: S1 and S2. No murmur. No gallop. ABDOMEN: Soft. The patient has some tenderness at the site of the J-tube, guarded when we go to assess that area; has some drainage reported from the nurse, yellow. SKIN: Intact. Otherwise, no patch. EXTREMITIES: No lower extremity edema or cyanosis. NEUROLOGIC: The patient is alert and oriented x2 to 3 with cranial nerves II through XII intact. Some cognitive deficit. MEDICATIONS: Norvasc 10 mg daily, aspirin 81 mg. The patient is on Rocephin 1 g IV piggyback every 8 hours, Colace Liquid, lactulose 20 mg daily, Lamictal 75 mg, Remeron 15 mg p.o. at bedtime, sucralfate, and trazodone 75 mg. LABORATORY DATA: White blood cells 9.9, hemoglobin 12.7, hematocrit 37.3, and platelet count 234. Sodium 138, potassium 3.1, BUN 16, creatinine 1, and GFR was 60. ASSESSMENT AND PLAN: This 64-year-old male came here from [facility]. He has a history of alcohol abuse, esophageal cancer, dysphagia, chronic anemia, hypertension, benign prostatic hyperplasia, diabetes mellitus type 2, J-tube enteral feeding.J-tube site with drainage. and erythema. The patient is receiving Rocephin 1 g for that. He is receiving Norvasc, Lamictal, Remeron, sucralfate, lactulose, and trazodone. The patient is going to go on in. Gastroenterology is on his case. Infectious Disease is on the case. J tube will be replaced, We will continue IV antibiotics, and plan for discharge once cleared by GI and ID. 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
[2019-02-23] MEDS: Sucralfate 1 gm/10 ml Oral Susp UD PO SCH ×2 (06:28→17:49)
[2019-02-23] MEDS: cefTRIAXone 1 gm 1 GM/100 ML BAG IVPB SCH (11:20)
--- NOTE | 2019-02-23 16:24 | CP.PCM.PN ---
Subjective - Date & Time of Evaluation Date of Evaluation: 02/23/19 Time of Evaluation: 16:00 - Subjective Subjective: Infectious Disease Follow Up: February 23, 2019 64 yo male with drainage from J-tube site. ER reports show that J-tube came out and a manzo was placed for access today. ([facility] notes are not showing this as I am reviewing them. [facility] notes showing the patient receiving medications at 6:18PM even though the patient has been in [facility] since 1PM from my review of the records.). The patient is making no specific complaints at this time. Afebrile and without leukocytosis. The patient has been in [facility] since 01/07/2019. Discussed with nursing staff at [facility]. The patient was found to have J-tube dislodged this morning. [facility] nursing placed manzo in J-tube place and was able to give feeds. As per [facility] nursing, patient wanted to be sent to hospital to be evaluated. Nursing at [facility] mentioned that there was a little amount of drainage but did not identify it as pus. Multiple previous hospitalizations at [facility]. Recent diagnosis of esophageal cancer in December 2018. No new complaints. Awaiting IR evaluation for replacement of J-tube. Noted GI evaluation. On Rocephin for Klebsiella treatment found on wound cultures. Objective - Vital Signs/Intake and Output Vital Signs (last 24 hours): Temp Pulse Resp BP Pulse Ox 98.1 F 62 18 106/72 99 02/22/19 22:33 02/22/19 22:33 02/22/19 22:33 02/23/19 10:46 02/22/19 22:33 - Medications Medications: Current Medications Amlodipine Besylate (Norvasc) 10 mg PO DAILY [facility] Last Admin: 02/23/19 10:46 Dose: Not Given Aspirin (Aspirin Chewable) 81 mg PO DAILY [facility] Last Admin: 02/23/19 10:46 Dose: 81 mg Docusate Sodium (Colace Liquid) 100 mg PO TID [facility] Last Admin: 02/23/19 13:52 Dose: Not Given Lactulose (Enulose) 20 gm PO DAILY PRN PRN Reason: Constipation Last Admin: 02/21/19 19:02 Dose: 20 gm Lamotrigine (Lamictal) 75 mg PO BID [facility]; Protocol Last Admin: 02/23/19 10:47 Dose: 75 mg Mirtazapine (Remeron) 15 mg PO HS [facility] Last Admin: 02/22/19 22:04 Dose: Not Given Sucralfate (Carafate Oral Susp) 1 gm PO 0600,1600 [facility] Last Admin: 02/23/19 06:28 Dose: Not Given Trazodone HCl (Desyrel) 75 mg PO HS [facility] Last Admin: 02/22/19 22:03 Dose: Not Given - Labs Labs: 02/19/19 17:45 02/19/19 17:20 PT 15.2 SECONDS (9.4-12.5) H 02/19/19 17:20 INR 1.37 02/19/19 17:20 APTT 35.7 Seconds (26.9-38.3) 02/19/19 17:20 - Constitutional Appears: Non-toxic, No Acute Distress, Chronically Ill - Head Exam Head Exam: ATRAUMATIC, NORMOCEPHALIC - Eye Exam Eye Exam: EOMI, PERRL Pupil Exam: NORMAL ACCOMODATION, PERRL - ENT Exam ENT Exam: Mucous Membranes Moist, Normal External Ear Exam, TM's Normal Bilaterally - Neck Exam Neck Exam: Full ROM, Normal Inspection - Respiratory Exam Respiratory Exam: Clear to Ausculation Bilateral, NORMAL BREATHING PATTERN. absent: Rales, Rhonchi, Wheezes - Cardiovascular Exam Cardiovascular Exam: REGULAR RHYTHM, RRR, +S1, +S2 - GI/Abdominal Exam GI & Abdominal Exam: Soft, Normal Bowel Sounds. absent: Distended, Tenderness Additional comments: J-tube site with no erythema. Mild tenderness of the J-tube site. - Extremities Exam Extremities Exam: Full ROM, Normal Inspection - Neurological Exam Neurological Exam: Alert, Awake, CN II-XII Intact, Oriented x3 - Psychiatric Exam Psychiatric exam: Normal Affect, Normal Mood - Skin Skin Exam: Intact, Normal Color Assessment and Plan - Assessment and Plan (Free Text) Assessment: 64 yo male with recent diagnosis of esophageal cancer found to have a dislodged J-tube on morning of 02/19/2019 at [facility]. The patient without fevers or chills. No other complaints at nursing facility. Patient with questionable tenderness of the J-tube site. Manzo in place of the J-tube at this time. Imaging studies show no extravasation and contrast is flowing into bowel. Will give Rocephin as empiric antibiotic therapy. However, no fevers or leukocytosis. Surgery recommending for IR to replace J-tube. No new issues. Consider GI evaluation regarding J-tube as well. Will continue on Rocephin empirically for antibiotic coverage. Klebsiella pneumonia in wound cultures sensitive to Rocephin. Continuing Rocep hin for treatment... consider 7 days of treatment in total depending on when J- tube is replaced. Supportive care. Thank you for allowing me to participate in the care of the patient, we will follow with you
[2019-02-24] MEDS: Sucralfate 1 gm/10 ml Oral Susp UD PO SCH ×2 (05:43→17:17)
--- NOTE | 2019-02-24 08:13 | PN ---
DATE: 02/23/2019 SUBJECTIVE: The patient is a 64-year-old male. Patient is seen and examined at the bedside on 02/23/2019. No change in the status. No headache. No dizziness. No chest pain. No palpitations. No fever. No chills. Still losing weight, getting feedings with the Doss catheter that was replaced for J-tube, getting IV antibiotics and waiting for J-tube placement. PHYSICAL EXAMINATION: VITAL SIGNS: Temperature 98.1, pulse 62, respiratory rate 18, blood pressure 120/72, oxygen saturation 99%. HEENT: Head; normocephalic, atraumatic. Eyes; PERRLA. Extraocular muscles intact. Conjunctivae clear. Nose patent. NECK: Supple. No carotid bruits. No JVD or thyromegaly. CHEST: Bilaterally symmetrical. HEART: S1 and S2 positive. LUNGS: Clear to auscultation. ABDOMEN: Soft. Bowel sounds present. No organomegaly. EXTREMITIES: No edema. No cyanosis. NEUROLOGIC: Patient is awake and alert. Moving all four extremities. No focal deficits. MEDICATIONS: Norvasc, aspirin, Colace, lactulose, Lamictal, Remeron, Carafate, trazodone. LABORATORY DATA: White blood cells 9.9, hemoglobin 12.7, hematocrit 37.3 and platelets 234. Sodium 138, potassium 3.1, BUN 15, creatinine 1.0. Glucose 93. ASSESSMENT AND PLAN: Mr. Anastacio Hatfield is a 64-year-old male with anemia, hypokalemia, recently diagnosed esophageal squamous cell cancer, has J-tube put in at [facility] by Dr. Gill, dislodged in [facility], then they put a Doss Catheter. No fever. No chills. When the patient came in the hospital, we came to know that area is like infected. Cultures were done that shows Klebsiella pneumoniae in the wound culture sensitive to Rocephin. According to Infectious Disease continue Rocephin for treatment, consider 7 days of treatment in total depending on when J-tube is placed. Infectious Disease is on the case. Gastroenterology on the case. Waiting for placement. History of anemia, getting radiation therapy. Repeat labs. We will follow. Kristina Espinoza MD [facility] # [phone] MTDShi
[2019-02-24] MEDS: cefTRIAXone 1 gm 1 GM/100 ML BAG IVPB SCH (13:30)
--- NOTE | 2019-02-24 16:56 | CP.PCM.PN ---
Subjective - Date & Time of Evaluation Date of Evaluation: 02/24/19 Time of Evaluation: 16:00 - Subjective Subjective: Infectious Disease Follow Up: February 24, 2019 64 yo male with drainage from J-tube site. ER reports show that J-tube came out and a manzo was placed for access today. ([facility] notes are not showing this as I am reviewing them. [facility] notes showing the patient receiving medications at 6:18PM even though the patient has been in [facility] since 1PM from my review of the records.). The patient is making no specific complaints at this time. Afebrile and without leukocytosis. The patient has been in [facility] since 01/07/2019. Discussed with nursing staff at [facility]. The patient was found to have J-tube dislodged this morning. [facility] nursing placed manzo in J-tube place and was able to give feeds. As per [facility] nursing, patient wanted to be sent to hospital to be evaluated. Nursing at [facility] mentioned that there was a little amount of drainage but did not identify it as pus. Multiple previous hospitalizations at [facility]. Recent diagnosis of esophageal cancer in December 2018. No new complaints. Awaiting IR evaluation for replacement of J-tube. Noted GI evaluation. On Rocephin for Klebsiella treatment found on wound cultures. Objective - Vital Signs/Intake and Output Vital Signs (last 24 hours): Temp Pulse Resp BP Pulse Ox 98.1 F 59 L 16 138/82 98 02/24/19 14:00 02/24/19 14:00 02/24/19 14:00 02/24/19 14:00 02/24/19 14:00 Intake and Output: 02/24/19 02/24/19 06:59 18:59 Intake Total 520 Output Total 100 Balance 420 - Medications Medications: Current Medications Amlodipine Besylate (Norvasc) 10 mg PO DAILY [facility] Last Admin: 02/24/19 10:51 Dose: Not Given Aspirin (Aspirin Chewable) 81 mg PO DAILY [facility] Last Admin: 02/24/19 10:51 Dose: Not Given Docusate Sodium (Colace Liquid) 100 mg PO TID [facility] Last Admin: 02/24/19 10:51 Dose: Not Given Ceftriaxone Sodium (Rocephin 1 Gram Ivpb) 1 gm in 100 mls @ 100 mls/hr IVPB DAILY [facility]; Protocol Lactulose (Enulose) 20 gm PO DAILY PRN PRN Reason: Constipation Last Admin: 02/21/19 19:02 Dose: 20 gm Lamotrigine (Lamictal) 75 mg PO BID [facility]; Protocol Last Admin: 02/24/19 10:51 Dose: Not Given Mirtazapine (Remeron) 15 mg PO HS [facility] Last Admin: 02/23/19 21:58 Dose: Not Given Sucralfate (Carafate Oral Susp) 1 gm PO 0600,1600 [facility] Last Admin: 02/24/19 05:43 Dose: Not Given Trazodone HCl (Desyrel) 75 mg PO HS [facility] Last Admin: 02/23/19 21:58 Dose: Not Given - Labs Labs: 02/19/19 17:45 02/19/19 17:20 PT 15.2 SECONDS (9.4-12.5) H 02/19/19 17:20 INR 1.37 02/19/19 17:20 APTT 35.7 Seconds (26.9-38.3) 02/19/19 17:20 - Constitutional Appears: Non-toxic, No Acute Distress, Chronically Ill - Head Exam Head Exam: ATRAUMATIC, NORMOCEPHALIC - Eye Exam Eye Exam: EOMI, PERRL Pupil Exam: NORMAL ACCOMODATION, PERRL - ENT Exam ENT Exam: Mucous Membranes Moist, Normal External Ear Exam, TM's Normal Bilaterally - Neck Exam Neck Exam: Full ROM, Normal Inspection - Respiratory Exam Respiratory Exam: Clear to Ausculation Bilateral, NORMAL BREATHING PATTERN. absent: Rales, Rhonchi, Wheezes - Cardiovascular Exam Cardiovascular Exam: REGULAR RHYTHM, RRR, +S1, +S2 - GI/Abdominal Exam GI & Abdominal Exam: Soft, Normal Bowel Sounds. absent: Distended, Tenderness Additional comments: J-tube site with no erythema. Mild tenderness of the J-tube site. - Extremities Exam Extremities Exam: Full ROM, Normal Inspection - Neurological Exam Neurological Exam: Alert, Awake, CN II-XII Intact, Oriented x3 - Psychiatric Exam Psychiatric exam: Normal Affect, Normal Mood - Skin Skin Exam: Intact, Normal Color Assessment and Plan - Assessment and Plan (Free Text) Assessment: 64 yo male with recent diagnosis of esophageal cancer found to have a dislodged J-tube on morning of 02/19/2019 at [facility]. The patient without fevers or chills. No other complaints at nursing facility. Patient with questionable tenderness of the J-tube site. Manzo in place of the J-tube at this time. Imaging studies show no extravasation and contrast is flowing into bowel. Will give Rocephin as empiric antibiotic therapy. However, no fevers or leukocytosis. Surgery recommending for IR to replace J-tube. No new issues. Consider GI evaluation regarding J-tube as well. Will continue on Rocephin empirically for antibiotic coverage. Klebsiella pneumonia in wound cultures sensitive to Rocephin. Continuing Rocephin for treatment... consider 7 days of treatment in total depending on when J-tube is replaced. Can replace J-tube after 5th day of antibiotic therapy . Supportive care. Thank you for allowing me to participate in the care of the patient, we will fo llow with you.
[2019-02-25] MEDS: Sucralfate 1 gm/10 ml Oral Susp UD PO SCH ×3 (06:24→19:12)
--- NOTE | 2019-02-25 07:39 | PN ---
DATE: 02/24/2019 This case was discussed with Dr. Espinoza, she is in agreement with the case. SUBJECTIVE: This is a 64-year-old male from [facility] who came in with signs of infection at J-tube site, drainage, fever, chills. The patient has a history of esophageal cancer, dysphagia, J-tube enteral feeding, alcohol, seizure disorder. He was admitted this time with wound infection. Saw the patient at the bedside today, he is Welsh-speaking, does understand some Turkish. He denies chest pain, shortness of breath, hematuria. Did report lower left quadrant pain at the site of the J-tube. Was unable to see actual skin, the patient was guarding, has some tenderness there. PHYSICAL EXAMINATION: VITAL SIGNS: Temperature 98.1, pulse rate 62, blood pressure 120/80, respiratory rate 18, saturation 99% on room air. GENERAL APPEARANCE: The patient is chronically ill, appears comfortable. Some agitation due to pain at J-tube site. HEENT: Normocephalic. PERRLA. Mucous membranes dry. NECK: Supple. Normal inspection. RESPIRATORY: Little wheeze or may be rales with cough. CARDIOVASCULAR: S1, S2. No murmur. No gallop. ABDOMEN: Soft. Tenderness noted to left lower quadrant where the J-tube site is. No organomegaly. SKIN: Intact. EXTREMITIES: No cyanosis. No edema. No calf tenderness. NEUROLOGIC: The patient is alert and oriented x2-3. Cranial nerves II through XII intact. No cognitive deficits. MEDICATIONS: Norvasc, aspirin, Rocephin 1 g, Colace, lactulose, Lamictal, Remeron, Carafate, Desyrel. LABORATORY DATA: White blood cells 9.9, hemoglobin 12.7, hematocrit 37.3, platelet count 334. INR 1.37. Sodium 138, potassium 3.1, BUN of 16, creatinine 1, GFR over 60. ASSESSMENT AND PLAN: This is a 54-year-old male from [facility], came in with signs of infection at jejunostomy tube site, increased drainage, tenderness at site, redness. He is receiving Rocephin IV piggyback every 8 hours. The patient is receiving some enteral feedings. The patient is receiving Norvasc, lactulose, Lamictal, Carafate oral suspension. Infectious Disease and GI is on the case. We will follow up with these departments and plan accordingly. ALL ABOVE NOTED , EDUCATION DONE , AGREED ALL ABOVE , WILL F/U Kush Mendez APN Kristina Espinoza MD [facility]
[2019-02-25] MEDS: cefTRIAXone 1 gm 1 GM/100 ML BAG IVPB SCH (10:30)
[2019-02-25 11:36] LABS: IRON 39 ug/dL (45-180)
[2019-02-25 11:39] LABS: ALB/GLOB RATIO 0.9 (1.1-1.8); ALBUMIN 3.2 g/dL (3.0-4.8); ALT/SGPT 7 U/L (7-56); AST/SGOT 16 U/L (17-59); BLOOD UREA NITROGEN 14 mg/dL (7-21); CALCIUM 8.9 mg/dL (8.4-10.5); GFR NON-AFRICAN AMERICAN > 60
[2019-02-25 11:46] LABS: % IRON SATURATION 19 % (20-55); TOTAL IRON BINDING CAPACITY 205 ug/dL (261-462)
--- NOTE | 2019-02-25 15:11 | CP.PCM.PN ---
Subjective - Date & Time of Evaluation Date of Evaluation: 02/25/19 Time of Evaluation: 14:00 - Subjective Subjective: Infectious Disease Follow Up: February 25, 2019 64 yo male with drainage from J-tube site. ER reports show that J-tube came out and a manzo was placed for access today. ([facility] notes are not showing this as I am reviewing them. [facility] notes showing the patient receiving medications at 6:18PM even though the patient has been in [facility] since 1PM from my review of the records.). The patient is making no specific complaints at this time. Afebrile and without leukocytosis. The patient has been in [facility] since 01/07/2019. Discussed with nursing staff at [facility]. The patient was found to have J-tube dislodged this morning. [facility] nursing placed manzo in J-tube place and was able to give feeds. As per [facility] nursing, patient wanted to be sent to hospital to be evaluated. Nursing at [facility] mentioned that there was a little amount of drainage but did not identify it as pus. Multiple previous hospitalizations at [facility]. Recent diagnosis of esophageal cancer in December 2018. No new complaints. Awaiting IR evaluation for replacement of J-tube. Noted GI evaluation. On Rocephin for Klebsiella treatment found on wound cultures. On day 5 of Rocephin. Objective - Vital Signs/Intake and Output Vital Signs (last 24 hours): Temp Pulse Resp BP Pulse Ox 98.1 F 59 L 16 102/65 98 02/24/19 14:00 02/24/19 14:00 02/24/19 14:00 02/25/19 10:30 02/24/19 14:00 Intake and Output: 02/25/19 02/25/19 06:59 18:59 Intake Total 960 Balance 960 - Medications Medications: Current Medications Amlodipine Besylate (Norvasc) 10 mg PO DAILY [facility] Last Admin: 02/25/19 10:30 Dose: Not Given Aspirin (Aspirin Chewable) 81 mg PO DAILY [facility] Last Admin: 02/25/19 10:30 Dose: 81 mg Docusate Sodium (Colace Liquid) 100 mg PO TID [facility] Last Admin: 02/25/19 10:30 Dose: Not Given Ceftriaxone Sodium (Rocephin 1 Gram Ivpb) 1 gm in 100 mls @ 100 mls/hr IVPB DAILY [facility]; Protocol Last Admin: 02/25/19 10:30 Dose: 100 mls/hr Lactulose (Enulose) 20 gm PO DAILY PRN PRN Reason: Constipation Last Admin: 02/21/19 19:02 Dose: 20 gm Lamotrigine (Lamictal) 75 mg PO BID [facility]; Protocol Last Admin: 02/25/19 10:30 Dose: Not Given Mirtazapine (Remeron) 15 mg PO HS [facility] Last Admin: 02/24/19 21:58 Dose: Not Given Sucralfate (Carafate Oral Susp) 1 gm PO 0600,1600 [facility] Last Admin: 02/25/19 06:24 Dose: Not Given Trazodone HCl (Desyrel) 75 mg PO HS [facility] Last Admin: 02/24/19 21:57 Dose: Not Given - Labs Labs: 02/19/19 17:45 02/25/19 10:51 PT 15.2 SECONDS (9.4-12.5) H 02/19/19 17:20 INR 1.37 02/19/19 17:20 APTT 35.7 Seconds (26.9-38.3) 02/19/19 17:20 - Constitutional Appears: Non-toxic, No Acute Distress, Chronically Ill - Head Exam Head Exam: ATRAUMATIC, NORMOCEPHALIC - Eye Exam Eye Exam: EOMI, PERRL Pupil Exam: NORMAL ACCOMODATION, PERRL - ENT Exam ENT Exam: Mucous Membranes Moist, Normal External Ear Exam, TM's Normal Bilaterally - Neck Exam Neck Exam: Full ROM, Normal Inspection - Respiratory Exam Respiratory Exam: Clear to Ausculation Bilateral, NORMAL BREATHING PATTERN. absent: Rales, Rhonchi, Wheezes - Cardiovascular Exam Cardiovascular Exam: REGULAR RHYTHM, RRR, +S1, +S2 - GI/Abdominal Exam GI & Abdominal Exam: Soft, Normal Bowel Sounds. absent: Distended, Tenderness Additional comments: J-tube site with no erythema. Mild tenderness of the J-tube site. - Extremities Exam Extremities Exam: Full ROM, Normal Inspection - Neurological Exam Neurological Exam: Alert, Awake, CN II-XII Intact, Oriented x3 - Psychiatric Exam Psychiatric exam: Normal Affect, Normal Mood - Skin Skin Exam: Intact, Normal Color Assessment and Plan - Assessment and Plan (Free Text) Assessment: 64 yo male with recent diagnosis of esophageal cancer found to have a dislodged J-tube on morning of 02/19/2019 at [facility]. The patient without fevers or chills. No other complaints at nursing facility. Patient with questionable tenderness of the J-tube site. Manzo in place of the J-tube at this time. Imaging studies show no extravasation and contrast is flowing into bowel. Will give Rocephin as empiric antibiotic therapy. However, no fevers or leukocytosis. Surgery recommending for IR to replace J-tube. No new issues. Consider GI evaluation regarding J-tube as well. Will continue on Rocephin empirically for antibiotic coverage. Klebsiella pneumonia in wound cultures sensitive to Rocephin. Continuing Rocephin for treatment... consider minimum 7 days of treatment in total depending on when J-tube is replaced. Can replace J-tube after 5th day of antibiotic therapy. On 5th day of Rocephin therapy as of 02/25/2019. Supportive care. Thank you for allowing me to participate in the care of the patient, we will follow with you.
--- NOTE | 2019-02-25 16:03 | PN ---
DATE: 02/25/2019 SUBJECTIVE: The patient is a 64-year-old male. The patient is seen and examined at the bedside on 02/25/2019. Looking comfortable According to the patient we are taking too much blood even blood not taken from at least one week. I spoke with Dr. Ross Philip and Dr. Gill. The patient is getting antibiotics, today is the 5th day of 7 days of Rocephin. No fever. No chills. No hematuria or hematochezia. No headache, no dizziness. No chest pain, no palpitations. PHYSICAL EXAMINATION: VITAL SIGNS: Temperature 98.1, pulse 69, respiratory rate 18, blood pressure 130/82, pulse oximetry 98%. HEENT: Head; normocephalic, atraumatic. Eyes; PERRLA. Extraocular muscles intact. Conjunctivae clear. Nose patent. Mucous membrane moist. NECK: Supple. No carotid bruits. No JVD. No thyromegaly. CHEST: Bilaterally symmetrical. HEART: S* and S2 positive. LUNGS: Clear to auscultation. ABDOMEN: Soft, nontender. Has J-tube placed, have Doss catheter there. EXTREMITIES: No edema. No cyanosis. NEUROLOGIC: The patient is awake, alert. Follow simple commands. MEDICATIONS: Norvasc, aspirin, Colace, Rocephin, Enulose, Remeron, and Carafate. LABORATORY DATA: White blood cells 9.9, hemoglobin 12.7, hematocrit 37.3 and platelets 234. Sodium 138, potassium 3.1, BUN 14, creatinine 1.0. Glucose 93. ASSESSMENT AND PLAN: Mr. Michael Chaves is a 64-year-old male with anemia, hypokalemia, has esophageal squamous cell carcinoma, has Port-A-Cath and jejunostomy tube placement in [facility] and dislodged in [facility]. The nursing staff put their Doss catheter now. The patient is here has had infection of that area. Getting antibiotics, today is I think 5th day of 7 days Rocephin. Continue antibiotics as per Infectious Disease. The patient is loosing weight, history of anemia, history of ethanol abuse, drug abuse. We will continue present treatment. Repeat labs. We will followup. Kristina Espinoza MD [facility] # [id number] [place]
[2019-02-25 17:12] LABS: FOLATE 4.7 ng/mL
[2019-02-25 19:53] LABS: BASO # 0.03 {null, K/mm3} (0.0-2.0); BASO % 0.5 % (0.0-3.0); EOS # 0.2 (0.0-0.7); EOS % 2.4 % (1.5-5.0); HEMOGLOBIN 11.1 g/dL (14.0-18.0); LYMPH # 0.6 (1.2-3.4); LYMPH % 9.9 % (22.0-35.0); MEAN CELL VOLUME 90.6 fl (80.0-105.0); MEAN CORPUSCULAR HEMOGLOBIN 29.8 pg (25.0-35.0); MEAN CORPUSCULAR HGB CONC 32.9 g/dl (31.0-37.0); MEAN PLATELET VOLUME 11.8 fl (7.0-11.0); MONO # 0.5 (0.1-0.6); MONO % 8.1 % (1.0-6.0); RBC 3.72 {null, 10^6/uL} (3.5-6.1); RED CELL DISTRIBUTION WIDTH 15.9 % (11.5-14.5); WHITE BLOOD COUNT 6.2 {null, 10^3/uL} (4.5-11.0)
--- NOTE | 2019-02-25 20:16 | PN ---
DATE: 02/25/2019 SUBJECTIVE: The patient is a 64-year-old male. The patient was seen and examined at the bedside on 02/25/2019. Little bit anxious, waiting for the placement of J-tube. Very noncompliant. Refusing all labs. Length of time discussion done with the patient and the patient's nurse. The patient speaks Italian, and he did translate for me that he has to go for blood workup to see his electrolytes and anemia. Spoke with Dr. Ross Philip and Dr. Gill, surgeon. No fever. No chills. No hematuria or hematochezia. No headache. No dizziness or chest pain. No palpitations. PHYSICAL EXAMINATION: VITAL SIGNS: Temperature 98.1, pulse 59, respiratory rate 15, blood pressure 102/55, pulse oximetry 98. HEENT: Head; normocephalic, atraumatic. Eyes; PERRLA. Extraocular muscles intact. Conjunctivae clear. Nose patent. Mucous membrane moist. NECK: Supple. No carotid bruits, JVD or thyromegaly. CHEST: Bilaterally symmetrical. HEART: S1 and S2 positive. LUNGS: Clear to auscultation. ABDOMEN: Soft. Bowel sounds present. No organomegaly. EXTREMITIES: No edema. No cyanosis. NEUROLOGICAL: The patient is awake, alert. Moving all four extremities. No focal deficits. MEDICATIONS: Norvasc, aspirin, Colace, Rocephin, lactulose, Lamictal, Remeron, Carafate, trazodone. LABORATORY DATA: We do not have recent labs today because the patient is refusing. Last labs were done on 02/19/2019, I reviewed that labs. ASSESSMENT AND PLAN: Mr. Anastacio Rodriguez is a 64-year-old male with anemia, with squamous cell esophageal cancer, has jejunostomy tube placed in [facility], dislodged, and in [facility], nursing staff put Doss catheter and now the patient's Doss catheter area was infected. Culture positive, gave IV antibiotics, getting Rocephin. Have to complete seven days. I will speak to Dr. Ross Philip and Dr. Gill. If Dr. Gill comes, he will make sure that the patient will get replacement with the jejunostomy tube, but the patient is very noncompliant. Sometimes it is very hard to convince the patient. History of ethanol abuse, drug abuse, substance abuse, history of dysphagia. Repeat labs. Gastrointestinal and deep venous thrombosis prophylaxis. We will follow up. Kristina Espinoza MD
[2019-02-26] MEDS: Sucralfate 1 gm/10 ml Oral Susp UD PO SCH ×3 (05:26→16:55)
[2019-02-26] MEDS: cefTRIAXone 1 gm 1 GM/100 ML BAG IVPB SCH (09:33)
--- NOTE | 2019-02-26 13:12 | PN ---
DATE: 02/26/2019 This case was discussed with Dr. Lanza she is in aggreement with treatment plan. SUBJECTIVE: This is a 64-year-old male who is a patient of [facility] in [place]. Occasionally hospitalized in [facility] for some nausea and vomiting, was discharged and admitted to [facility] with wound infection. The patient has a past medical history of esophageal cancer, alcohol abuse, seizure, chest pain, hypertension, chronic sinusitis, saw the patient today at the bedside and he was alert and oriented. Denies shortness of breath, chest pain, hematuria, hematochezia. Reports some left lower quadrant pain at the J-tube site. I explained to the patient today that we will continue with the IV antibiotics according to ID. The patient is ready for J-tube placement. PHYSICAL EXAMINATION: VITAL SIGNS: Temperature 97.7, pulse rate 63, blood pressure 129/78, respiratory rate 18, the patient is sating at 98% on room air. GENERAL: The patient appears to be in no acute distress. Does report pain in the left lower quadrant, near the J-tube site. HEENT: Normocephalic. PERRLA. Mucous membranes moist. NECK: Supple. Normal inspection. RESPIRATORY: Clear to auscultation. No rhonchi. No wheeze. CARDIOVASCULAR: S1, S2. No murmur. No gallop. ABDOMEN: Soft. Left lower quadrant pain at J-tube site. Positive bowel sounds. Less guarding. Less tenderness from previous assessment. SKIN: Normal, intact. No cyanosis. No edema. NEUROLOGIC: The patient is alert and oriented. Cranial nerves II through XII intact. Some cognitive deficit. MEDICATIONS: The patient is taking Norvasc 10 mg daily, aspirin chewable 81 mg, Rocephin 1 g IV piggyback, Colace, lactulose 20 g daily, Lamictal 75 p.o. b.i.d., Remeron 15 p.o. at bedtime, Carafate 1 g twice a day, Ultram 50 mg t.i.d., trazodone 75 mg p.o. at bedtime. LABORATORY DATA: White blood cell 6.2, hemoglobin 11.1, hematocrit 33.7, platelet count 329. Sodium 137, potassium 3.7, BUN 14, creatinine 0.9, GFR is over 60. AST 16, ALT 7, bilirubin 0.3, alkaline phosphatase 94, vitamin B12 582, folate 4.7. ASSESSMENT AND PLAN: This is a 64-year-old male with esophageal cancer, hypertension, seizure, anxiety, dysphagia with enteral feedings through J-tube, infection of the J-tube. The patient continues to get Rocephin IV, I believe, twice a day. The patient is receiving lactulose, Lamictal, mirtazapine. He is complaining of left lower quadrant pain at J-site. On exam, the patient had less guarding and tenderness at site than before (two days ago) Ordered trazodone 50 mg t.i.d. to start today. Reviewed Infectious Disease note patient is ready for J tube placement, we willf/u with GI; Possible placement for coming Thursday We will f/u. 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
--- NOTE | 2019-02-26 16:52 | CP.PCM.PN ---
Subjective - Date & Time of Evaluation Date of Evaluation: 02/26/19 Time of Evaluation: 16:00 - Subjective Subjective: Infectious Disease Follow Up: February 26, 2019 64 yo male with drainage from J-tube site. ER reports show that J-tube came out and a manzo was placed for access today. ([facility] notes are not showing this as I am reviewing them. [facility] notes showing the patient receiving medications at 6:18PM even though the patient has been in [facility] since 1PM from my review of the records.). The patient is making no specific complaints at this time. Afebrile and without leukocytosis. The patient has been in [facility] since 01/07/2019. Discussed with nursing staff at [facility]. The patient was found to have J-tube dislodged this morning. [facility] nursing placed manzo in J-tube place and was able to give feeds. As per [facility] nursing, patient wanted to be sent to hospital to be evaluated. Nursing at [facility] mentioned that there was a little amount of drainage but did not identify it as pus. Multiple previous hospitalizations at [facility]. Recent diagnosis of esophageal cancer in December 2018. No new complaints. Awaiting replacement of J-tube. Noted GI evaluation. On Rocephin for Klebsiella treatment found on wound cultures. On day 6 of Rocephin. Clear for J-tube placement from ID perspective. Objective - Vital Signs/Intake and Output Vital Signs (last 24 hours): Temp Pulse Resp BP Pulse Ox 98.2 F 68 18 119/75 100 02/26/19 14:00 02/26/19 14:00 02/26/19 14:00 02/26/19 14:00 02/26/19 14:00 Intake and Output: 02/26/19 02/26/19 06:59 18:59 Intake Total 300 Balance 300 - Medications Medications: Current Medications Amlodipine Besylate (Norvasc) 10 mg PO DAILY [facility] Last Admin: 02/26/19 09:30 Dose: 10 mg Aspirin (Aspirin Chewable) 81 mg PO DAILY [facility] Last Admin: 02/26/19 09:30 Dose: 81 mg Docusate Sodium (Colace Liquid) 100 mg PO TID [facility] Last Admin: 02/26/19 13:22 Dose: Not Given Ceftriaxone Sodium (Rocephin 1 Gram Ivpb) 1 gm in 100 mls @ 100 mls/hr IVPB DAILY [facility]; Protocol Last Admin: 02/26/19 09:33 Dose: 100 mls/hr Lactulose (Enulose) 20 gm PO DAILY PRN PRN Reason: Constipation Last Admin: 02/21/19 19:02 Dose: 20 gm Lamotrigine (Lamictal) 75 mg PO BID [facility]; Protocol Last Admin: 02/26/19 09:28 Dose: 75 mg Mirtazapine (Remeron) 15 mg PO HS [facility] Last Admin: 02/25/19 21:27 Dose: Not Given Sucralfate (Carafate Oral Susp) 1 gm PO 0600,1600 [facility] Last Admin: 02/26/19 09:27 Dose: 1 gm Tramadol HCl (Ultram) 50 mg PO TID [facility] Last Admin: 02/26/19 13:19 Dose: 50 mg Trazodone HCl (Desyrel) 75 mg PO [facility] Last Admin: 02/25/19 21:27 Dose: Not Given - Labs Labs: 02/25/19 19:43 02/25/19 10:51 PT 15.2 SECONDS (9.4-12.5) H 02/19/19 17:20 INR 1.37 02/19/19 17:20 APTT 35.7 Seconds (26.9-38.3) 02/19/19 17:20 - Constitutional Appears: Non-toxic, No Acute Distress, Chronically Ill - Head Exam Head Exam: ATRAUMATIC, NORMOCEPHALIC - Eye Exam Eye Exam: EOMI, PERRL Pupil Exam: NORMAL ACCOMODATION, PERRL - ENT Exam ENT Exam: Mucous Membranes Moist, Normal External Ear Exam, TM's Normal Bilaterally - Neck Exam Neck Exam: Full ROM, Normal Inspection - Respiratory Exam Respiratory Exam: Clear to Ausculation Bilateral, NORMAL BREATHING PATTERN. absent: Rales, Rhonchi, Wheezes - Cardiovascular Exam Cardiovascular Exam: REGULAR RHYTHM, RRR, +S1, +S2 - GI/Abdominal Exam GI & Abdominal Exam: Soft, Normal Bowel Sounds. absent: Distended, Tenderness Additional comments: J-tube site with no erythema. Mild tenderness of the J-tube site. - Extremities Exam Extremities Exam: Full ROM, Normal Inspection - Neurological Exam Neurological Exam: Alert, Awake, CN II-XII Intact, Oriented x3 - Psychiatric Exam Psychiatric exam: Normal Affect, Normal Mood - Skin Skin Exam: Intact, Normal Color Assessment and Plan - Assessment and Plan (Free Text) Assessment: 64 yo male with recent diagnosis of esophageal cancer found to have a dislodged J-tube on morning of 02/19/2019 at [facility]. The patient without fevers or chills. No other complaints at nursing facility. Patient with questionable tenderness of the J-tube site. Manzo in place of the J-tube at this time. Imaging studies show no extravasation and contrast is flowing into bowel. Will give Rocephin as empiric antibiotic therapy. However, no fevers or leukocytosis. Surgery recommending for IR to replace J-tube. No new issues. Consider GI evaluation regarding J-tube as well. Will continue on Rocephin empirically for antibiotic coverage. Klebsiella pneumonia in wound cultures sensitive to Rocephin. Continuing Rocephin for treatment... consider minimum 7 days of treatment in total depending on when J-tube is replaced. Can replace J-tube after 5th day of antibiotic therapy. On 6th day of Rocephin therapy as of 02/25/2019. When J- tube replaced, will consider use of oral antibiotics to continue after IV therapy completed. Supportive care. Thank you for allowing me to participate in the care of the patient, we will follow with you.
[2019-02-26] MEDS ORDERED: Ciprofloxacin 0.3% OPTH SOLN OS PRN (21:15)
[2019-02-27] MEDS: Sucralfate 1 gm/10 ml Oral Susp UD PO SCH ×2 (05:38→18:00)
[2019-02-27] MEDS: cefTRIAXone 1 gm 1 GM/100 ML BAG IVPB SCH (11:23)
--- NOTE | 2019-02-27 14:55 | CP.PCM.PN ---
Subjective - Date & Time of Evaluation Date of Evaluation: 02/27/19 Time of Evaluation: 14:00 - Subjective Subjective: Infectious Disease Follow Up: February 27, 2019 64 yo male with drainage from J-tube site. ER reports show that J-tube came out and a manzo was placed for access today. ([facility] notes are not showing this as I am reviewing them. [facility] notes showing the patient receiving medications at 6:18PM even though the patient has been in [facility] since 1PM from my review of the records.). The patient is making no specific complaints at this time. Afebrile and without leukocytosis. The patient has been in [facility] since 01/07/2019. Discussed with nursing staff at [facility]. The patient was found to have J-tube dislodged this morning. [facility] nursing placed manzo in J-tube place and was able to give feeds. As per [facility] nursing, patient wanted to be sent to hospital to be evaluated. Nursing at [facility] mentioned that there was a little amount of drainage but did not identify it as pus. Multiple previous hospitalizations at . Recent diagnosis of esophageal cancer in December 2018. No new complaints. Awaiting replacement of J-tube. Noted GI evaluation. On Rocephin for Klebsiella treatment found on wound cultures. On day 7 of Rocephin. Still clear for J-tube placement from ID perspective. Objective - Vital Signs/Intake and Output Vital Signs (last 24 hours): Temp Pulse Resp BP Pulse Ox 98.2 F 68 18 119/75 100 02/26/19 14:00 02/26/19 14:00 02/26/19 14:00 02/26/19 14:00 02/26/19 14:00 - Medications Medications: Current Medications Amlodipine Besylate (Norvasc) 10 mg PO DAILY [facility] Last Admin: 02/27/19 10:00 Dose: Not Given Aspirin (Aspirin Chewable) 81 mg PO DAILY [facility] Last Admin: 02/27/19 10:00 Dose: Not Given Ciprofloxacin (Ciloxan 0.3% Ophth Soln) 1 drop OS Q2H PRN PRN Reason: Inflammation Docusate Sodium (Colace Liquid) 100 mg PO TID [facility] Last Admin: 02/27/19 14:39 Dose: Not Given Ceftriaxone Sodium (Rocephin 1 Gram Ivpb) 1 gm in 100 mls @ 100 mls/hr IVPB DAILY [facility]; Protocol Last Admin: 02/27/19 11:23 Dose: 100 mls/hr Lactulose (Enulose) 20 gm PO DAILY PRN PRN Reason: Constipation Last Admin: 02/21/19 19:02 Dose: 20 gm Lamotrigine (Lamictal) 75 mg PO BID [facility]; Protocol Last Admin: 02/27/19 10:00 Dose: Not Given Mirtazapine (Remeron) 15 mg PO [facility] Last Admin: 02/26/19 21:01 Dose: Not Given Sucralfate (Carafate Oral Susp) 1 gm PO 0600,1600 [facility] Last Admin: 02/27/19 05:38 Dose: Not Given Tramadol HCl (Ultram) 50 mg PO TID [facility] Last Admin: 02/27/19 14:40 Dose: Not Given Trazodone HCl (Desyrel) 75 mg PO [facility] Last Admin: 02/26/19 21:01 Dose: Not Given - Labs Labs: 02/25/19 19:43 02/25/19 10:51 PT 15.2 SECONDS (9.4-12.5) H 02/19/19 17:20 INR 1.37 02/19/19 17:20 APTT 35.7 Seconds (26.9-38.3) 02/19/19 17:20 - Constitutional Appears: Non-toxic, No Acute Distress, Chronically Ill - Head Exam Head Exam: ATRAUMATIC, NORMOCEPHALIC - Eye Exam Eye Exam: EOMI, PERRL Pupil Exam: NORMAL ACCOMODATION, PERRL - ENT Exam ENT Exam: Mucous Membranes Moist, Normal External Ear Exam, TM's Normal Bilaterally - Neck Exam Neck Exam: Full ROM, Normal Inspection - Respiratory Exam Respiratory Exam: Clear to Ausculation Bilateral, NORMAL BREATHING PATTERN. abs ent: Rales, Rhonchi, Wheezes - Cardiovascular Exam Cardiovascular Exam: REGULAR RHYTHM, RRR, +S1, +S2 - GI/Abdominal Exam GI & Abdominal Exam: Soft, Normal Bowel Sounds. absent: Distended, Tenderness Additional comments: J-tube site with no erythema. Very mild tenderness of the J-tube site. Manzo in place instead of J-tube. - Extremities Exam Extremities Exam: Full ROM, Normal Inspection - Neurological Exam Neurological Exam: Alert, Awake, Oriented x3 - Psychiatric Exam Psychiatric exam: Normal Affect, Normal Mood - Skin Skin Exam: Intact, Normal Color Assessment and Plan - Assessment and Plan (Free Text) Assessment: 64 yo male with recent diagnosis of esophageal cancer found to have a dislodged J-tube on morning of 02/19/2019 at [facility]. The patient without fevers or chills. No other complaints at nursing facility. Patient with questionable tenderness of the J-tube site. Manzo in place of the J-tube at this time. Imaging studies show no extravasation and contrast is flowing into bowel. Will give Rocephin as empiric antibiotic therapy. However, no fevers or leukocytosis. Surgery recommending for IR to replace J-tube. No new issues. Consider GI evaluation regarding J-tube as well. Will continue on Rocephin empirically for antibiotic coverage. Klebsiella pneumonia in wound cultures sensitive to Rocephin. Continuing Rocephin for treatment... consider minimum 7 days of treatment in total depending on when J-tube is replaced. Can replace J-tube after 5th day of antibiotic therapy by whichever service (surgery, GI, or IR) is willing to place the new J-tube. On 7th day of Rocephin therapy as of 02/25/2019. When J-tube replaced, will consider use of oral antibiotics to continue after IV therapy completed. Supportive care. Thank you for allowing me to participate in the care of the patient, we will follow with you.
--- NOTE | 2019-02-27 17:45 | CP.PCM.PN ---
Subjective - Date & Time of Evaluation Date of Evaluation: 02/24/19 Time of Evaluation: 09:35 - Subjective Subjective: Feels the discharge of the J-tube site decreasing. Patient is tolerating full liquid diet. Objective - Vital Signs/Intake and Output Vital Signs (last 24 hours): Temp Pulse Resp BP Pulse Ox 98.1 F 59 L 16 138/82 98 02/24/19 14:00 02/24/19 14:00 02/24/19 14:00 02/24/19 14:00 02/24/19 14:00 Intake and Output: 02/24/19 02/25/19 18:59 06:59 Intake Total 960 Balance 960 - Medications Medications: Current Medications Amlodipine Besylate (Norvasc) 10 mg PO DAILY [facility] Last Admin: 02/24/19 10:51 Dose: Not Given Aspirin (Aspirin Chewable) 81 mg PO DAILY [facility] Last Admin: 02/24/19 10:51 Dose: Not Given Docusate Sodium (Colace Liquid) 100 mg PO TID [facility] Last Admin: 02/24/19 17:17 Dose: Not Given Ceftriaxone Sodium (Rocephin 1 Gram Ivpb) 1 gm in 100 mls @ 100 mls/hr IVPB DAILY [facility]; Protocol Last Admin: 02/24/19 13:30 Dose: 100 mls/hr Lactulose (Enulose) 20 gm PO DAILY PRN PRN Reason: Constipation Last Admin: 02/21/19 19:02 Dose: 20 gm Lamotrigine (Lamictal) 75 mg PO BID [facility]; Protocol Last Admin: 02/24/19 17:17 Dose: Not Given Mirtazapine (Remeron) 15 mg PO HS [facility] Last Admin: 02/24/19 21:58 Dose: Not Given Sucralfate (Carafate Oral Susp) 1 gm PO 0600,1600 [facility] Last Admin: 02/24/19 17:17 Dose: Not Given Trazodone HCl (Desyrel) 75 mg PO HS [facility] Last Admin: 02/24/19 21:57 Dose: Not Given - Labs Labs: 02/19/19 17:45 02/19/19 17:20 PT 15.2 SECONDS (9.4-12.5) H 02/19/19 17:20 INR 1.37 02/19/19 17:20 APTT 35.7 Seconds (26.9-38.3) 02/19/19 17:20 - Head Exam Head Exam: ATRAUMATIC, NORMOCEPHALIC - Eye Exam Eye Exam: EOMI, PERRL - ENT Exam ENT Exam: Mucous Membranes Moist, Normal Oropharynx - Neck Exam Neck Exam: Full ROM. absent: Lymphadenopathy - Respiratory Exam Respiratory Exam: NORMAL BREATHING PATTERN. absent: Accessory Muscle Use - Cardiovascular Exam Cardiovascular Exam: REGULAR RHYTHM, +S1, +S2. absent: JVD - GI/Abdominal Exam GI & Abdominal Exam: Soft Additional comments: Stu tube site noticed a Doss catheter in place but most of the catheter seems to be intraluminal. There is there is some minimal dried discharge noticed at the tube site. The site itself appears less erythematous than better - Neurological Exam Neurological Exam: Alert, Awake, Oriented x3 Assessment and Plan - Assessment and Plan (Free Text) Assessment: This 64-year-old patient with esophageal cancer had a J-tube placement. There was infection at the J-tube site noticed on antibiotics now improving Patient is being followed by the surgery. Requested IR for replacement of the tube however they wanted to be G-tube site infection to clear before changing the G-tube. Presently Doss catheter in place
[2019-02-27] MEDS ORDERED: DiphenhydrAMINE 50 mg/ml Inj IVP STA (21:06)
[2019-02-27] MEDS: Calamine-Zinc Oxide Lotion (120 ml) TOP PRN (22:52)
[2019-02-28] MEDS ORDERED: Barium Sulfate Susp 2.1% w/v, 2.0% w/w 450 mL Bottle PO ONE (03:04)
[2019-02-28] MEDS: Sucralfate 1 gm/10 ml Oral Susp UD PO SCH ×2 (10:39→17:57)
[2019-02-28] MEDS: cefTRIAXone 1 gm 1 GM/100 ML BAG IVPB SCH (10:39)
[2019-02-28] MEDS ORDERED: Lidocaine PF 2% (5 ml) Inj (For Cardiac Arrhy) ONE (15:13)
[2019-02-28] MEDS ORDERED: Midazolam 2 MG/2 ML VIAL ONE (16:18)
[2019-02-28] MEDS ORDERED: Iodixanol 320 MG/ML 100 ML BOTTLE IV ONE (16:18)
[2019-02-28] MEDS ORDERED: Sodium Chloride 0.45% 1,000 ML IV SCH (16:45)
[2019-02-28 16:49] VITALS: RESP 12; TEMP 98.4
[2019-02-28 17:07] VITALS: BP 110/73; PULSE 60; O2SAT 95
[2019-02-28] MEDS ORDERED: Iohexol 240 (50 ml) ONE (17:07)
--- NOTE | 2019-02-28 17:52 | VASCULAR ---
Date of service: 02/28/2019 PROCEDURE: Replace left lower quadrant jejunostomy tube. HISTORY: Esophageal CA. Jejunostomy tube. Needs replacement. COMPARISON: TECHNIQUE: The relative risks and indications of the procedure explained the patient consent obtained. Patient placed supine on the arteriogram table in the of Doss catheter left lower quadrant prepped and draped usual sterile fashion. Conscious sedation monitoring were provided throughout the procedure by a nurse. Contrast was injected through the Doss catheter which confirmed intraluminal position. The balloon was deflated. The Doss catheter was removed over a guidewire. A new 20 Bulgarian jejunostomy tube was advanced over the wire. The and balloon was inflated with 7 cc of dilute contrast. Position was confirmed with injection of contrast. The patient tolerated the procedure well. FINDINGS: IMPRESSION: Percutaneous replacement of the patient's left lower quadrant jejunostomy tube.
--- NOTE | 2019-02-28 18:38 | CP.PCM.PN ---
Subjective - Date & Time of Evaluation Date of Evaluation: 02/28/19 Time of Evaluation: 17:00 - Subjective Subjective: Infectious Disease Follow Up: February 28, 2019 64 yo male with drainage from J-tube site. ER reports show that J-tube came out and a manzo was placed for access today. (Critical access hospital notes are not showing this as I am reviewing them. [facility] notes showing the patient receiving medications at 6:18PM even though the patient has [place] [facility] [place] from my review of the records.). The patient is making no specific complaints at this time. Afebrile and without leukocytosis. The patient has been in [facility] hospital since 01/07/2019. Discussed with nursing staff at Critical access hospital. The patient was found to have J-tube dislodged this morning. [facility] nursing placed manzo in J-tube place and was able to give feeds. As per [facility] nursing, patient wanted to be sent to hospital to be evaluated. Nursing at [facility] mentioned that there was a little amount of drainage but did not identify it as pus. Multiple previous hospitalizations at [facility]. Recent diagnosis of esophageal cancer in December 2018. No new complaints. Awaiting replacement of J-tube. Noted GI evaluation. On Rocephin for Klebsiella treatment found on wound cultures. On day 8 of Rocephin. Still clear for J-tube placement from ID perspective. Taken by IR for J-tube placement today by Dr. Philip. Objective - Vital Signs/Intake and Output Vital Signs (last 24 hours): Temp Pulse Resp BP Pulse Ox 98.4 F 60 12 110/73 95 02/28/19 17:06 02/28/19 17:06 02/28/19 17:06 02/28/19 17:06 02/28/19 17:06 Intake and Output: 02/28/19 02/28/19 06:59 18:59 Intake Total 360 Balance 360 - Medications Medications: Current Medications Amlodipine Besylate (Norvasc) 10 mg PO DAILY [facility] Last Admin: 02/28/19 11:45 Dose: Not Given Aspirin (Aspirin Chewable) 81 mg PO DAILY [facility] Last Admin: 02/28/19 10:39 Dose: 81 mg Calamine (Calamine Lotion) 0 ml TOP Q2H PRN PRN Reason: Itching / Pruritus Last Admin: 02/27/19 22:52 Dose: 120 ml Ciprofloxacin (Ciloxan 0.3% Ophth Soln) 1 drop OS Q2H PRN PRN Reason: Inflammation Clotrimazole (Mycelex Neymar) 10 mg MT TID [facility] Last Admin: 02/28/19 17:55 Dose: 10 mg Docusate Sodium (Colace Liquid) 100 mg PO TID [facility] Last Admin: 02/28/19 17:55 Dose: 100 mg Ceftriaxone Sodium (Rocephin 1 Gram Ivpb) 1 gm in 100 mls @ 100 mls/hr IVPB DAILY [facility]; Protocol Last Admin: 02/28/19 10:39 Dose: 100 mls/hr Sodium Chloride (Sodium Chloride 0.45%) 1,000 mls @ 80 mls/hr IV .[id number] [facility] Stop: 03/01/19 08:00 Lactulose (Enulose) 20 gm PO DAILY PRN PRN Reason: Constipation Last Admin: 02/28/19 17:55 Dose: 20 gm Lamotrigine (Lamictal) 75 mg PO BID [facility]; Protocol Last Admin: 02/28/19 17:58 Dose: Not Given Mirtazapine (Remeron) 15 mg PO [facility] Last Admin: 02/27/19 23:38 Dose: Not Given Sucralfate (Carafate Oral Susp) 1 gm PO 0600,1600 [facility] Last Admin: 02/28/19 17:57 Dose: 1 gm Tramadol HCl (Ultram) 50 mg PO TID [facility] Last Admin: 02/28/19 17:57 Dose: Not Given Trazodone HCl (Desyrel) 75 mg PO [facility] Last Admin: 02/27/19 23:37 Dose: Not Given - Labs Labs: 02/25/19 19:43 02/25/19 10:51 PT 15.2 SECONDS (9.4-12.5) H 02/19/19 17:20 INR 1.37 02/19/19 17:20 APTT 35.7 Seconds (26.9-38.3) 02/19/19 17:20 - Constitutional Appears: Non-toxic, No Acute Distress, Chronically Ill - Head Exam Head Exam: ATRAUMATIC, NORMOCEPHALIC - Eye Exam Eye Exam: EOMI, PERRL Pupil Exam: NORMAL ACCOMODATION, PERRL - ENT Exam ENT Exam: Mucous Membranes Moist, Normal External Ear Exam, TM's Normal Bilaterally - Neck Exam Neck Exam: Full ROM, Normal Inspection - Respiratory Exam Respiratory Exam: Clear to Ausculation Bilateral, NORMAL BREATHING PATTERN. absent: Rales, Rhonchi, Wheezes - Cardiovascular Exam Cardiovascular Exam: REGULAR RHYTHM, RRR, +S1, +S2 - GI/Abdominal Exam GI & Abdominal Exam: Soft, Normal Bowel Sounds. absent: Distended, Tenderness Additional comments: J-tube site with no erythema. Very mild tenderness of the J-tube site. Manzo in place instead of J-tube. - Extremities Exam Extremities Exam: Full ROM, Normal Inspection - Neurological Exam Neurological Exam: Alert, Awake, CN II-XII Intact, Oriented x3 - Psychiatric Exam Psychiatric exam: Normal Affect, Normal Mood - Skin Skin Exam: Intact, Normal Color Assessment and Plan - Assessment and Plan (Free Text) Assessment: 64 yo male with recent diagnosis of esophageal cancer found to have a dislodged J-tube on morning of 02/19/2019 at [facility]. The patient without fevers or chills. No other complaints at nursing facility. Patient with questionable tenderness of the J-tube site. Manzo in place of the J-tube at this time. Imaging studies show no extravasation and contrast is flowing into bowel. Will give Rocephin as empiric antibiotic therapy. However, no fevers or leukocytosis. Surgery recommending for IR to replace J-tube. No new issues. Consider GI evaluation regarding J-tube as well. Will continue on Rocephin empirically for antibiotic coverage. Klebsiella pneumonia in wound cultures sensitive to Rocephin. Continuing Rocephin for treatment... consider minimum 7 days of treatment in total depending on when J-tube is replaced. Can replace J-tube after 5th day of antibiotic therapy by whichever service (surgery, GI, or IR) is willing to place the new J-tube. On 8th day of Rocephin therapy as of 02/28/2019. When J-tube replaced, will consider use of oral antibiotics to continue after IV therapy completed. 02/28/2019 taken to IR for J-tube replacement by Dr. Georgie Philip. Can consider use of oral Keflex (can use suspension) to complete up to 7 days more treatment with 500mg BID. Supportive care. Thank you for allowing me to participate in the care of the patient, we will follow with you.
--- NOTE | 2019-02-28 20:11 | PN ---
DATE: 02/28/2019 SUBJECTIVE: Patient is a 64-year-old male. Patient was seen and examined at the bedside on 02/28/2019. No acute change in the status. He is getting antibiotics and getting radiation therapy. Complaining about itchiness for a number of months. No fever. No chills. No hematuria. No hematochezia. No headache. No dizziness. No chest pain. No palpitations. PHYSICAL EXAMINATION: VITAL SIGNS: Temperature 98.2, pulse 68, respiratory rate 18, blood pressure 119/75, pulse oximetry 100%. HEENT: Head; normocephalic, atraumatic. Eyes; PERRLA. Extraocular muscles intact. Conjunctivae clear. Nose patent. Mucous membranes moist. NECK: Supple. No carotid bruits, JVD, or thyromegaly. CHEST: Bilaterally symmetrical. HEART: S1 and S2 positive. LUNGS: Clear to auscultation. ABDOMEN: Soft. Bowel sounds positive. No organomegaly. EXTREMITIES: No edema. No cyanosis. NEUROLOGICAL: The patient is awake, alert. Moving all four extremities. No focal deficits. MEDICATIONS: Amlodipine, aspirin, Colace, Lamictal, Remeron. LABORATORY DATA: White blood cells 6.8, hemoglobin 11.1, hematocrit 33.7, and platelets 329. Sodium 137, potassium 3.5, BUN 14, creatinine 0.9. Glucose 85. ASSESSMENT AND PLAN: Mr. Anastacio Rodriguez is a 64-year-old male with anemia of chronic disease malignancy, dysphagia, has squamous cell carcinoma of the esophagus, had jejunostomy tube, was recently in [facility]. Jejunostomy tube got displaced, brought him to [facility], found that he has infection, getting antibiotics, Rocephin. As soon as antibiotics are done, we will do replacement of jejunostomy tube. IR and Surgery is on the case. Discussion done with Dr. Gill, Surgery, may be operating room tomorrow. Patient has oral candidiasis, started on Mycelex yuki. The patient is getting feeding with Doss's catheter that is placed on the jejunostomy tube opening. Repeat labs. We will follow up. Kristina Espinoza MD MTDD
--- NOTE | 2019-02-28 20:49 | CP.PCM.PN ---
Subjective - Date & Time of Evaluation Date of Evaluation: 02/28/19 Time of Evaluation: 15:30 - Subjective Subjective: Patient has some mild discharge of the G-tube site patient feels better plan for change of j-tube from Doss Objective - Vital Signs/Intake and Output Vital Signs (last 24 hours): Temp Pulse Resp BP Pulse Ox 98.4 F 60 12 110/73 95 02/28/19 17:06 02/28/19 17:06 02/28/19 17:06 02/28/19 17:06 02/28/19 17:06 - Medications Medications: Current Medications Amlodipine Besylate (Norvasc) 10 mg PO DAILY [facility] Last Admin: 02/28/19 11:45 Dose: Not Given Aspirin (Aspirin Chewable) 81 mg PO DAILY [facility] Last Admin: 02/28/19 10:39 Dose: 81 mg Calamine (Calamine Lotion) 0 ml TOP Q2H PRN PRN Reason: Itching / Pruritus Last Admin: 02/27/19 22:52 Dose: 120 ml Ciprofloxacin (Ciloxan 0.3% Oph Soln) 1 drop OS Q2H PRN PRN Reason: Inflammation Clotrimazole (Mycelex Neymar) 10 mg MT TID [facility] Last Admin: 02/28/19 17:55 Dose: 10 mg Docusate Sodium (Colace Liquid) 100 mg PO TID [facility] Last Admin: 02/28/19 17:55 Dose: 100 mg Ceftriaxone Sodium (Rocephin 1 Gram Ivpb) 1 gm in 100 mls @ 100 mls/hr IVPB DA [facility]; Protocol Last Admin: 02/28/19 10:39 Dose: 100 mls/hr Sodium Chloride (Sodium Chloride 0.45%) 1,000 mls @ 80 mls/hr IV .[id number] [facility] Stop: 03/01/19 08:00 Lactulose (Enulose) 20 gm PO DAILY PRN PRN Reason: Constipation Last Admin: 02/28/19 17:55 Dose: 20 gm Lamotrigine (Lamictal) 75 mg PO BID [facility]; Protocol Last Admin: 02/28/19 17:58 Dose: Not Given Mirtazapine (Remeron) 15 mg PO HS [facility] Last Admin: 02/27/19 23:38 Dose: Not Given Sucralfate (Carafate Oral Susp) 1 gm PO 0600,1600 [facility] Last Admin: 02/28/19 17:57 Dose: 1 gm Tramadol HCl (Ultram) 50 mg PO TID [facility] Last Admin: 02/28/19 17:57 Dose: Not Given Trazodone HCl (Desyrel) 75 mg PO HS [facility] Last Admin: 02/27/19 23:37 Dose: Not Given - Labs Labs: 02/25/19 19:43 02/25/19 10:51 PT 15.2 SECONDS (9.4-12.5) H 02/19/19 17:20 INR 1.37 02/19/19 17:20 APTT 35.7 Seconds (26.9-38.3) 02/19/19 17:20 - Head Exam Head Exam: ATRAUMATIC, NORMOCEPHALIC - Eye Exam Eye Exam: EOMI Pupil Exam: PERRL - ENT Exam ENT Exam: Mucous Membranes Moist, Normal Oropharynx - Respiratory Exam Respiratory Exam: NORMAL BREATHING PATTERN. absent: Accessory Muscle Use - Cardiovascular Exam Cardiovascular Exam: +S1, +S2. absent: JVD - GI/Abdominal Exam GI & Abdominal Exam: Soft, Normal Bowel Sounds. absent: Mass - Neurological Exam Neurological Exam: Alert, Awake, Oriented x3 Assessment and Plan - Assessment and Plan (Free Text) Assessment: This patient with the cervical cancer on radiation therapy was admitted was admitted for dislodged J-tube and Doss tube was placed temporarily. Patient was complaining of discomfort at the J tube site. Patient treated with antibiotics for site cellulitis. Clinically improving. Plan for change of Doss catheter to J-tube today by interventional radiologist
[2019-02-28] MEDS ORDERED: DiphenhydrAMINE 50 mg/ml Inj IVP STA (22:23)
[2019-02-28] MEDS: Calamine-Zinc Oxide Lotion (120 ml) TOP PRN (22:35)
[2019-03-01] MEDS ORDERED: Barium Sulfate Susp 2.1% w/v, 2.0% w/w 450 mL Bottle PO ONE (00:13)
[2019-03-01] MEDS: cefTRIAXone 1 gm 1 GM/100 ML BAG IVPB SCH (10:58)
[2019-03-01] MEDS: Calamine-Zinc Oxide Lotion (120 ml) TOP PRN (14:59)
[2019-03-01] MEDS: Sucralfate 1 gm/10 ml Oral Susp UD PO SCH (17:19)
--- NOTE | 2019-03-01 17:39 | CP.PCM.PN ---
Subjective - Date & Time of Evaluation Date of Evaluation: 03/01/19 Time of Evaluation: 16:00 - Subjective Subjective: Infectious Disease Follow Up: March 01, 2019 64 yo male with drainage from J-tube site. ER reports show that J-tube came out and a manzo was placed for access today. (Critical access hospital notes are not showing this as I am reviewing them. [facility] notes showing the patient receiving medications at 6:18PM even though the patient has been in [facility] [place] since 1[place] from my review of the records.). The patient is making no specific complaints at this time. Afebrile and without leukocytosis. The patient has been in Critical access hospital since 01/07/2019. Discussed with nursing staff at Critical access hospital. The patient was found to have J-tube dislodged this morning. [facility] nursing placed manzo in J-tube place and was able to give feeds. As per [facility] nursing, patient wanted to be sent to hospital to be evaluated. Nursing at [facility] mentioned that there was a little amount of drainage but did not identify it as pus. Multiple previous hospitalizations at [facility] Recent diagnosis of esophageal cancer in December 2018. No new complaints. Awaiting replacement of J-tube. Noted GI evaluation. On Rocephin for Klebsiella treatment found on wound cultures. On day 9 of Rocephin. Still clear for J-tube placement from ID perspective. Taken by IR for J-tube placement today by Dr. Philip. Objective - Vital Signs/Intake and Output Vital Signs (last 24 hours): Temp Pulse Resp BP Pulse Ox 98.4 F 60 12 110/73 95 02/28/19 17:06 02/28/19 17:06 02/28/19 17:06 02/28/19 17:06 02/28/19 17:06 Intake and Output: 03/01/19 03/01/19 06:59 18:59 Intake Total 780 450 Balance 780 450 - Medications Medications: Current Medications Amlodipine Besylate (Norvasc) 10 mg PO DAILY [facility] Last Admin: 03/01/19 10:55 Dose: Not Given Aspirin (Aspirin Chewable) 81 mg PO DAILY [facility] Last Admin: 03/01/19 10:55 Dose: Not Given Calamine (Calamine Lotion) 0 ml TOP Q2H PRN PRN Reason: Itching / Pruritus Last Admin: 03/01/19 14:59 Dose: 120 ml Cephalexin Monohydrate (Keflex) 500 mg PO Q12 [facility]; Protocol Stop: 03/15/19 22:01 Ciprofloxacin (Ciloxan 0.3% Ophth Soln) 1 drop OS Q2H PRN PRN Reason: Inflammation Clotrimazole (Mycelex Neymar) 10 mg MT TID [facility] Last Admin: 03/01/19 17:19 Dose: Not Given Docusate Sodium (Colace Liquid) 100 mg PO TID [facility] Last Admin: 03/01/19 17:19 Dose: Not Given Lactulose (Enulose) 20 gm PO DAILY PRN PRN Reason: Constipation Last Admin: 02/28/19 17:55 Dose: 20 gm Lamotrigine (Lamictal) 75 mg PO BID [facility]; Protocol Last Admin: 03/01/19 17:19 Dose: Not Given Mirtazapine (Remeron) 15 mg PO HS [facility] Last Admin: 02/28/19 21:04 Dose: Not Given Sucralfate (Carafate Oral Susp) 1 gm PO 0600,1600 [facility] Last Admin: 03/01/19 17:19 Dose: Not Given Tramadol HCl (Ultram) 50 mg PO TID [facility] Last Admin: 03/01/19 17:19 Dose: Not Given Trazodone HCl (Desyrel) 75 mg PO HS [facility] Last Admin: 02/28/19 21:04 Dose: Not Given - Labs Labs: 02/25/19 19:43 02/25/19 10:51 PT 15.2 SECONDS (9.4-12.5) H 02/19/19 17:20 INR 1.37 02/19/19 17:20 APTT 35.7 Seconds (26.9-38.3) 02/19/19 17:20 - Constitutional Appears: Non-toxic, No Acute Distress, Chronically Ill - Head Exam Head Exam: ATRAUMATIC, NORMOCEPHALIC - Eye Exam Eye Exam: EOMI, PERRL Pupil Exam: NORMAL ACCOMODATION, PERRL - ENT Exam ENT Exam: Mucous Membranes Moist, Normal External Ear Exam, TM's Normal Bilatera lly - Neck Exam Neck Exam: Full ROM, Normal Inspection - Respiratory Exam Respiratory Exam: Clear to Ausculation Bilateral, NORMAL BREATHING PATTERN. absent: Rales, Rhonchi, Wheezes - Cardiovascular Exam Cardiovascular Exam: REGULAR RHYTHM, RRR, +S1, +S2 - GI/Abdominal Exam GI & Abdominal Exam: Soft, Normal Bowel Sounds. absent: Distended, Tenderness Additional comments: J-tube site with no erythema. Very mild tenderness of the J-tube site. Manzo in place instead of J-tube. - Extremities Exam Extremities Exam: Full ROM, Normal Inspection - Neurological Exam Neurological Exam: Alert, Awake, CN II-XII Intact, Oriented x3 - Psychiatric Exam Psychiatric exam: Normal Affect, Normal Mood - Skin Skin Exam: Intact, Normal Color Assessment and Plan - Assessment and Plan (Free Text) Assessment: 64 yo male with recent diagnosis of esophageal cancer found to have a dislodged J-tube on morning of 02/19/2019 at [facility]. The patient without fevers or chills. No other complaints at nursing facility. Patient with questionable tenderness of the J-tube site. Manzo in place of the J-tube at this time. Imaging studies show no extravasation and contrast is flowing int o bowel. Will give Rocephin as empiric antibiotic therapy. However, no fevers or leukocytosis. Surgery recommending for IR to replace J-tube. No new issues. Consider GI evaluation regarding J-tube as well. Will continue on Rocephin empirically for antibiotic coverage. Klebsiella pneumonia in wound cultures sensitive to Rocephin. Continuing Rocephin for treatment... consider minimum 7 days of treatment in total depending on when J-tube is replaced. Can replace J-tube after 5th day of ant ibiotic therapy by whichever service (surgery, GI, or IR) is willing to place the new J-tube. On 8th day of Rocephin therapy as of 02/28/2019. When J-tube replaced, will consider use of oral antibiotics to continue after IV therapy completed. 02/28/2019 taken to IR for J-tube replacement by Dr. Georgie Philip. Can consider use of oral Keflex (can use suspension) to complete up to 7 days more treatment with 500mg BID. Supportive care. Possible discharge back to Critical access hospital today (03/01/2019) Thank you for allowing me to participate in the care of the patient, we will follow with you.
[2019-03-01] MEDS ORDERED: Cephalexin Susp 250 MG/5 ML PO SCH (22:00)
--- NOTE | 2019-03-02 04:26 | CP.PCM.PN ---
Subjective - Date & Time of Evaluation Date of Evaluation: 02/27/19 Time of Evaluation: 23:45 - Subjective Subjective: S:Patient was seen at bedside because I was asked to cosign the order for calamine lotion and IV Benadryl. This was ordered for itching and redness of the lower extremities. Patient has no other complaints. O:Vital signs stable. Not in acute distress. Lungs: Normal breathing pattern. Skin: Scattered redness positive. Skin is dry. A:Itching and dryness. P:Calamine lotion and Benadryl as per order. Objective - Vital Signs/Intake and Output Vital Signs (last 24 hours): Temp Pulse Resp BP Pulse Ox 98.4 F 60 12 110/73 95 02/28/19 17:06 02/28/19 17:06 02/28/19 17:06 02/28/19 17:06 02/28/19 17:06 Intake and Output: 03/01/19 03/02/19 18:59 06:59 Intake Total 450 Balance 450 - Labs Labs: 02/25/19 19:43 02/25/19 10:51 PT 15.2 SECONDS (9.4-12.5) H 02/19/19 17:20 INR 1.37 02/19/19 17:20 APTT 35.7 Seconds (26.9-38.3) 02/19/19 17:20
--- NOTE | 2019-03-02 07:16 | DS ---
This patient's case was discussed with Dr. Espinoza. She is in agreement with the treatment plan. HISTORY OF PRESENT ILLNESS: This is a 64-year-old male, patient of [facility] came in with suspected infection of the J-tube site area, left lower quadrant pain, and drainage from J-tube. He has a past medical history of esophageal cancer, alcoholism, nicotine dependence, essential hypertension, and BPH. I saw the patient today at bedside. The patient looked well. The patient was alert and oriented. Denied shortness of breath, palpitations, less abdominal pain; he is reporting some soreness LLQ patient denied hematuria or hematochezia. PHYSICAL EXAMINATION: GENERAL: The patient looking comfortable, in no acute distress, and chronically ill. VITAL SIGNS: Temperature 98.4, heart rate 60, blood pressure 110/73, respiratory rate 12, and O2 saturation 95% on room air. HEENT: Normocephalic and atraumatic. PERRLA. Mucous membranes moist. NECK: Supple. Normal inspection. RESPIRATORY: Clear to auscultation. No wheeze. No rhonchi. CARDIOVASCULAR: S1 and S2. No murmur. No gallop. ABDOMEN: Soft and nondistended. Some tenderness in the LLQ area;,+BS no organmegly SKIN: Intact. No cyanosis. No edema. NEUROLOGIC: The patient is alert and oriented Cranial nerves II through XII are intact. MEDICATIONS: Norvasc 10 mg daily, aspirin chewable daily, calamine lotion, Keflex 500 mg every 12 hours prophylactically, ciprofloxacin eyedrops, Mycelex Neymar, Colace liquid, lactulose, Lamictal, Remeron, ferrous sulfate, Ultram, and Desyrel. LABORATORY DATA: WBC 6.2, hemoglobin 11.1, hematocrit 33.7, and platelet count 229. Sodium 137, potassium 3.7, BUN is 14, creatinine 0.9, and GFR was 60. ASSESSMENT AND PLAN: The patient came in with J tube drainage, tenderness, culture was obtained and positive for culture of the Klebsiella pneumoniae Staphylococcus. Patient completed IV antibiotics before replacement of J tube. The patient was also followed by Gastrointestinal and Pulmonary, GI has cleared patient for discharge, he will be transferred back to [facility] today with Keflex 500 mg suspension for 7 days, we will f/u with patient at assisted. Kush Mendez APN Kristina Espinoza MD [facility]
== END 2019-03-01 21:29 | DRG 188 ==
LOC: ED 13:57 → ERH 16:44 → 5RNO 20:23
PROVIDERS: ADMIT Internal Medicine; ATTEND Internal Medicine
PROC: 0D2DXUZ Change Feeding Device in Lower Intestinal Tract, External Approach (ICD-10-PCS; principal; 2019-02-28)
DX: K94.12 Enterostomy infection (principal); B37.0 Candidal stomatitis; C15.9 Malignant neoplasm of esophagus, unspecified; E87.6 Hypokalemia; L03.311 Cellulitis of abdominal wall; B96.1 Klebsiella pneumoniae [K. pneumoniae] as the cause of diseases classified elsewhere; J44.9 Chronic obstructive pulmonary disease, unspecified; B95.8 Unspecified staphylococcus as the cause of diseases classified elsewhere; D64.9 Anemia, unspecified; E11.9 Type 2 diabetes mellitus without complications; F10.21 Alcohol dependence, in remission; F32.9 Major depressive disorder, single episode, unspecified; I10 Essential (primary) hypertension; F41.9 Anxiety disorder, unspecified; G40.909 Epilepsy, unspecified, not intractable, without status epilepticus; N40.0 Benign prostatic hyperplasia without lower urinary tract symptoms; J32.9 Chronic sinusitis, unspecified; R13.10 Dysphagia, unspecified; L29.9 Pruritus, unspecified; Z72.0 Tobacco use; Z59.0 Homelessness; Z91.19 Patient's noncompliance with other medical treatment and regimen; Z92.3 Personal history of irradiation